=== PATIENT | female | born 1960 | race Caucasian/White ===

== ENCOUNTER → 2018-01-02 00:19 | Outpatient (CLI) | payer BC, SELFPAY ==
--- NOTE | 2018-01-02 07:11 | DI.REPORT_ITS ---
SYMPTOM/DIAGNOSIS: SCREENING, Z12.31 MAMMOGRAMS: Mammograms were interpreted according to the usual protocol including computer analysis with CAD system, tomosynthesis and C view imaging. Comparison is made with prior examinations. Breast density, category A. No masses or microcalcifications are seen. There is nothing to suggest malignancy. IMPRESSION: Negative mammogram. Routine screening is recommended. Category 1A. MQSA ASSESSMENT OF FINDINGS: Negative. Category 1. Patient will receive a letter notifying them of these results. BI-RAD category A. The breasts are almost entirely fatty.
== END ==
PROVIDERS: PCP Nurse Practitioner Family; Visit Provider Nurse Practitioner Family
DX: Z12.31 Encounter for screening mammogram for malignant neoplasm of breast (principal)
CPT/HCPCS: 77063; 77067

== ENCOUNTER → 2018-01-02 01:28 | Outpatient (CLI) | payer BC, SELFPAY ==
[2018-01-02 09:16] LABS: ALT 43 U/L (12-78); AST 24 U/L (15-37); Albumin 3.8 g/dL (3.4-5.0); Alkaline Phosphatase 76 U/L (46-116); Anion Gap 12.8 mmol/L (3-11); BUN 10 mg/dL (7-18); Bilirubin, Total 0.7 mg/dL (0.2-1.0); CO2 27.2 mmol/L (21.0-32.0); Calcium 9.1 mg/dL (8.5-10.1); Chloride 102 mmol/L (98-107); Glucose 201 mg/dL (70-100); Magnesium 1.5 mg/dL (1.8-2.4); Potassium 4.2 mmol/L (3.5-5.1); Sodium 142 mmol/L (136-145); TSH (W/Ref FT4) 0.92 uIU/mL (0.358-3.74)
[2018-01-02 09:22] LABS: Hemoglobin A1C 7.4 % (4.5-6.2)
[2018-01-02 09:58] LABS: Cholesterol 156 mg/dL (50-200); HDL Cholesterol 45 mg/dL (40-60); LDL CHOLESTEROL 91 mg/dL (<100); Triglyceride 147 mg/dL (30-150); Vitamin B12 307 pg/mL (193-986)
== END ==
PROVIDERS: PCP Nurse Practitioner Family; Visit Provider Nurse Practitioner Family
DX: E11.65 Type 2 diabetes mellitus with hyperglycemia (principal); E78.5 Hyperlipidemia, unspecified; I10 Essential (primary) hypertension
CPT/HCPCS: 36415; 80053; 80061; 83721; 82607; 83036; 83735; 84443

== ENCOUNTER 2018-04-15 14:18 | Outpatient (CLI) | payer BC, SELFPAY ==
[2018-04-14 11:23] LABS: Magnesium 1.7 mg/dL (1.8-2.4)
[2018-04-14 14:10] LABS: Hemoglobin A1C 6.8 % (4.5-6.2)
== END 2018-04-15 14:38 ==
PROVIDERS: PCP Nurse Practitioner Family; Visit Provider Nurse Practitioner Family
DX: E83.42 Hypomagnesemia (principal); E11.9 Type 2 diabetes mellitus without complications
CPT/HCPCS: 36415; 83036; 83735

== ENCOUNTER 2018-12-08 02:42 | Outpatient (CLI) | payer BC, SELFPAY ==
[2018-12-08 10:58] LABS: Hemoglobin A1C 8.1 % (4.5-6.2)
[2018-12-08 11:04] LABS: Anion Gap 12.8 mmol/L (3-11); BUN 11 mg/dL (7-18); CO2 24.2 mmol/L (21.0-32.0); Calcium 8.7 mg/dL (8.5-10.1); Calculated LDL 94 mg/dL; Chloride 104 mmol/L (98-107); Cholesterol 159 mg/dL (50-200); Glucose 200 mg/dL (70-100); HDL Cholesterol 41 mg/dL (40-60); Magnesium 1.4 mg/dL (1.8-2.4); Potassium 4.3 mmol/L (3.5-5.1); Sodium 141 mmol/L (136-145); Triglyceride 120 mg/dL (30-150)
== END 2018-12-08 03:02 ==
PROVIDERS: PCP Nurse Practitioner Family; Visit Provider Nurse Practitioner Family
DX: E11.9 Type 2 diabetes mellitus without complications (principal); E78.5 Hyperlipidemia, unspecified; E83.42 Hypomagnesemia
CPT/HCPCS: 36415; 80048; 80061; 83721; 83036; 83735

== ENCOUNTER 2019-01-05 01:38 | Outpatient (CLI) | payer BC, SELFPAY ==
--- NOTE | 2019-01-05 08:45 | DI.MRI_ITS ---
SYMPTOM/DIAGNOSIS: RT UPPER ARM PAIN M79.621 RIGHT SHOULDER MRI: 01/05 MRI examination of the shoulder was performed according to the usual protocol. There is small shoulder joint effusion and thee is fluid in the subacromial bursa. There is significant motion artifact on multiple pulse sequences and evaluation of the glenoid labrum is limited. There are hypertrophic changes of the acromioclavicular joint. No other significant bony abnormality seen. There is thickening and abnormal signal of the supraspinatus and infraspinatus tendons and there appear to be partial and full thickness tears, nonretracted, of both supraspinatus and infraspinatus tendons. Mildly abnormal signal noted in distal subscapularis tendon without evidence of a discrete tear. Biceps tendon and anchor show abnormal signal but do not appear to have a discrete tear. Biceps is minimally and medially displaced from the bicepital groove superiorly. There is abnormal signal in the rotator interval region without a discrete tear. There is increased fluid in the biceps tendon sheath which is a nonspecific finding. CONCLUSION: Limited study. Non retracted partial and full thickness infraspinatus and supraspinatus tendon tears Findings consistent with biceps tendinosis with no gross tear identified. Poor visualization of the biceps tendon, a tear is not entirely excluded.
== END 2019-01-05 01:58 ==
PROVIDERS: PCP Nurse Practitioner Family; Visit Provider Nurse Practitioner Family
DX: M75.21 Bicipital tendinitis, right shoulder (principal)
CPT/HCPCS: 73221

== ENCOUNTER 2019-01-18 01:12 | Outpatient (CLI) | payer BC, SELFPAY ==
--- NOTE | 2019-01-18 16:21 | DI.MAMMO_ITS ---
SYMPTOM/DIAGNOSIS: SCREENING Z12.31 BILATERAL SCREENING MAMMOGRAM: Mammograms were interpreted according to the usual protocol including computer analysis with CAD system, tomosynthesis and C view imaging. Comparison is made with exams from 2013 through 2018. The breasts are composed of fatty density tissue, breast density category A. No suspicious masses or suspicious microcalcifications are seen. There has been no significant change. IMPRESSION: Category 1, negative mammogram. Yearly screening mammography is recommended. Breast density category A. SA ASSESSMENT OF FINDINGS: Negative. Category 1. Patient will receive a letter notifying them of these results. BI-RAD category A. The breasts are almost entirely fatty.
== END 2019-01-18 01:32 ==
PROVIDERS: PCP Nurse Practitioner Family; Visit Provider Nurse Practitioner Family
DX: Z12.31 Encounter for screening mammogram for malignant neoplasm of breast (principal)
CPT/HCPCS: 77063; 77067

== ENCOUNTER 2019-04-21 10:20 | Outpatient (CLI) | payer BC, SELFPAY ==
[2019-04-21 13:05] LABS: ALT 36 U/L (14-59); AST 22 U/L (15-37); Albumin 3.8 g/dL (3.4-5.0); Alkaline Phosphatase 81 U/L (46-116); Anion Gap 12.2 mmol/L (3-11); BUN 14 mg/dL (7-18); Bilirubin, Total 0.6 mg/dL (0.2-1.0); CO2 26.8 mmol/L (21.0-32.0); CREATININE 0.99 mg/dL (0.55-1.02); Calcium 9.8 mg/dL (8.5-10.1); Chloride 101 mmol/L (98-107); Estimated GFR 57.61 (mL/min/1.73m2); Glucose 153 mg/dL (74-106); Magnesium 1.9 mg/dL (1.8-2.4); Potassium 4.8 mmol/L (3.5-5.1); Sodium 140 mmol/L (136-145); Total Protein 7.2 g/dL (6.4-8.2)
== END 2019-04-21 10:40 ==
PROVIDERS: PCP Nurse Practitioner Family; Visit Provider Nurse Practitioner Family
DX: E11.9 Type 2 diabetes mellitus without complications (principal)
CPT/HCPCS: 36415; 80053; 83735

== ENCOUNTER 2020-01-03 12:43 | Outpatient (REF) | payer BC, SELFPAY ==
[2020-01-03 14:15] LABS: Anion Gap 10.7 mmol/L (3-11); BUN 17 mg/dL (7-18); CO2 25.3 mmol/L (21.0-32.0); CREATININE 0.83 mg/dL (0.55-1.02); Calcium 9.3 mg/dL (8.5-10.1); Calculated LDL 115 mg/dL (<100); Chloride 104 mmol/L (98-107); Cholesterol 186 mg/dL (<200); Glucose 165 mg/dL (74-106); HDL Cholesterol 43 mg/dL (40-60); Potassium 4.5 mmol/L (3.5-5.1); Sodium 140 mmol/L (136-145); Triglyceride 143 mg/dL (<150)
[2020-01-03 14:20] LABS: Hemoglobin A1C 9.2 % (3.8-5.6)
[2020-01-05 10:00] LABS: Magnesium 1.8 mg/dL (1.8-2.4)
== END 2020-01-03 13:03 ==
LOC: LBN 12:43
PROVIDERS: PCP Nurse Practitioner Family; Visit Provider Nurse Practitioner Family
DX: E11.9 Type 2 diabetes mellitus without complications (principal)
CPT/HCPCS: 80048; 80061; 83036; 83735

== ENCOUNTER 2020-01-24 02:14 | Outpatient (CLI) | payer BC, SELFPAY ==
--- NOTE | 2020-01-24 08:15 | DI.MAMMO_ITS ---
EXAM: MG MAMMO SCREENING CLINICAL HISTORY: screening, Z12.39 TECHNIQUE: Bilateral full field digital CC and MLO mammographic images were obtained with 3D tomosyn thesis and utilizing computer aided detection (CAD). COMPARISON: Available for comparison. FINDINGS: Masses/Architectural Distortion: None seen. Microcalcifications: No suspicious pleomorphic-type are seen. Skin Thickening/Nipple Retraction: None. IMPRESSION: 1. No significant interval change with no specific features of malignancy noted. 2. Unless there is more urgent need, screening mammography is recommended, as per [place] [employer] guidelines. BI-RADS Category 1 - Negative Breast Density - Category A - Almost entirely fatty A negative radiographic report should not delay biopsy if a dominant or clinically suspicious mass is present. Up to ten percent of cancers are not identified on mammography. A negative report may reinforce clinical impression. Adenosis and dense breasts may obscure an underlying neoplasm. False positive reports average 6 to 10%. Patient will receive a letter notifying them of these results.
== END 2020-01-24 02:34 ==
PROVIDERS: PCP Nurse Practitioner Family; Visit Provider Nurse Practitioner Family
DX: Z12.31 Encounter for screening mammogram for malignant neoplasm of breast (principal)
CPT/HCPCS: 77063; 77067

== ENCOUNTER 2020-02-03 21:51 | Outpatient (REF) | payer BC, SELFPAY ==
[2020-02-03 20:47] LABS: Anion Gap 13.6 mmol/L (3-11); BUN 54 mg/dL (7-18); CO2 25.4 mmol/L (21.0-32.0); CREATININE 1.56 mg/dL (0.55-1.02); Calcium 9.9 mg/dL (8.5-10.1); Chloride 94 mmol/L (98-107); Estimated GFR 33.97 (mL/min/1.73m2); Glucose 146 mg/dL (74-106); Potassium 3.4 mmol/L (3.5-5.1); Sodium 133 mmol/L (136-145)
== END 2020-02-03 22:11 ==
LOC: LBN 21:51
PROVIDERS: PCP Nurse Practitioner Family; Visit Provider Nurse Practitioner Family
DX: E11.9 Type 2 diabetes mellitus without complications (principal)
CPT/HCPCS: 80048

== ENCOUNTER 2020-02-11 01:58 | Outpatient (CLI) | payer BC, SELFPAY ==
[2020-02-11 17:23] LABS: Anion Gap 9.5 mmol/L (3-11); BUN 41 mg/dL (7-18); CO2 26.5 mmol/L (21.0-32.0); CREATININE 1.31 mg/dL (0.55-1.02); Calcium 9.6 mg/dL (8.5-10.1); Chloride 98 mmol/L (98-107); Estimated GFR 41.56 (mL/min/1.73m2); Glucose 212 mg/dL (74-106); Potassium 3.7 mmol/L (3.5-5.1); Sodium 134 mmol/L (136-145)
== END 2020-02-11 02:18 ==
PROVIDERS: PCP Nurse Practitioner Family; Visit Provider Nurse Practitioner Family
DX: N17.9 Acute kidney failure, unspecified (principal)
CPT/HCPCS: 36415; 80048

== ENCOUNTER 2020-03-07 01:52 | Outpatient (CLI) | payer BC, SELFPAY ==
--- NOTE | 2020-03-07 15:30 | NS.NUTBLAN_ITS ---
Assessment: Desiree present for nutritional counseling r/t DM w/ mild elevated BG and concerns about her eating habits/food choices. She uses the freestyle jn CGM and we reviewed some recent numbers which were revealed post prandial BG of 226(H). She recently had her Lantus increased to 14units and after a follow up call from this RD today (03/16) she reports that her BG levels are trending toward desired range to promote optimum TIR. She is on Jardiance and glipizide also. She states that she follows her DM med regimen per MD orders. Previously on victoza which gave her undesirable GI side effects. Noted: hx diverticulitis. She is a smoker and has some DM related retinopathy per documentation. She reported a breakfast of 2 keto pancakes,sugar free syrup, and 2 slices trejo. She has been eating very low amounts of CHO's according to her reported diet hx. Intervention: Reviewed the concept of elevated BG resulting from glycogen conversion by the liver to compensate for lack of CHO intake. Explained the counterintuitive nature of this concept to help Desiree understand that people with DM need CHO in the diet with monitoring and that total elimination can result in both elevated BG and Hypoglycemia. We discussed examples of complex CHO's vs simple CHO. Recommended <60g CHO/ meal period. Explained that her elevated FBG could be mitigated by a small healthy snack at night. She agreed to try that. Provided CHO and PRO paring examples to facilitate desired TIR. Encouraged follow up appointment to analyze data from CGM and provide TIR education. Plan: Spoke with Desiree today to encourage follow up with this RD prior to and other approaching holidays. At this upcoming meeting we will set calorie/Fats/Pro percentage goals, calculate nutritional needs and perform data analysis using CGM. Time Spent Face top Face: 4 units/ 1 hour
== END 2020-03-07 02:12 ==
PROVIDERS: PCP Nurse Practitioner Family; Visit Provider Dietitian, Registered
DX: E11.65 Type 2 diabetes mellitus with hyperglycemia (principal); Z71.3 Dietary counseling and surveillance
CPT/HCPCS: 97802

== ENCOUNTER 2020-03-09 17:13 | Outpatient (REF) | payer BC, SELFPAY ==
[2020-03-09 21:34] LABS: Anion Gap 9.7 mmol/L (3-11); BUN 37 mg/dL (7-18); CO2 30.3 mmol/L (21.0-32.0); CREATININE 1.26 mg/dL (0.55-1.02); Calcium 10.1 mg/dL (8.5-10.1); Chloride 98 mmol/L (98-107); Estimated GFR 43.46 (mL/min/1.73m2); Glucose 179 mg/dL (74-106); Potassium 3.6 mmol/L (3.5-5.1); Sodium 138 mmol/L (136-145)
== END 2020-03-09 17:33 ==
LOC: LBN 17:13
PROVIDERS: PCP Nurse Practitioner Family; Visit Provider Nurse Practitioner Family
DX: E11.9 Type 2 diabetes mellitus without complications (principal)
CPT/HCPCS: 80048

== ENCOUNTER 2020-04-21 04:53 | Outpatient (CLI) | payer BC, SELFPAY ==
[2020-04-21 08:14] LABS: Hemoglobin A1C 6.8 % (<5.7)
[2020-04-21 08:39] LABS: Anion Gap 8.5 mmol/L (3-11); BUN 27 mg/dL (7-18); CO2 28.5 mmol/L (21.0-32.0); CREATININE 1.33 mg/dL (0.55-1.02); Calcium 9.4 mg/dL (8.5-10.1); Chloride 98 mmol/L (98-107); Estimated GFR 40.84 (mL/min/1.73m2); Glucose 211 mg/dL (74-106); Potassium 3.5 mmol/L (3.5-5.1); Sodium 135 mmol/L (136-145)
== END 2020-04-21 05:13 ==
PROVIDERS: PCP Nurse Practitioner Family; Visit Provider Nurse Practitioner Family
DX: E11.9 Type 2 diabetes mellitus without complications (principal)
CPT/HCPCS: 36415; 80048; 83036

== ENCOUNTER 2020-05-29 03:37 | Outpatient (CLI) | payer BC, SELFPAY ==
[2020-05-29 12:43] LABS: Anion Gap 7.6 mmol/L (3-11); BUN 23 mg/dL (7-18); CO2 29.4 mmol/L (21.0-32.0); CREATININE 1.24 mg/dL (0.55-1.02); Calcium 9.4 mg/dL (8.5-10.1); Chloride 99 mmol/L (98-107); Estimated GFR 44.27 (mL/min/1.73m2); Glucose 194 mg/dL (74-106); Potassium 3.8 mmol/L (3.5-5.1); Sodium 136 mmol/L (136-145)
== END 2020-05-29 03:57 ==
PROVIDERS: PCP Nurse Practitioner Family; Visit Provider Nurse Practitioner Family
DX: E11.9 Type 2 diabetes mellitus without complications (principal)
CPT/HCPCS: 36415; 80048

== ENCOUNTER 2020-07-18 02:27 | Outpatient (CLI) | payer BC, SELFPAY ==
[2020-07-18 08:26] LABS: Hemoglobin A1C 7.1 % (<5.7)
[2020-07-18 08:41] LABS: Anion Gap 10.7 mmol/L (3-11); BUN 27 mg/dL (7-18); CO2 29.3 mmol/L (21.0-32.0); CREATININE 1.4 mg/dL (0.55-1.02); Calcium 9.4 mg/dL (8.5-10.1); Calculated LDL 108 mg/dL (<100); Chloride 97 mmol/L (98-107); Cholesterol 183 mg/dL (<200); Estimated GFR 38.49 (mL/min/1.73m2); Glucose 202 mg/dL (74-106); HDL Cholesterol 44 mg/dL (40-60); Potassium 3.5 mmol/L (3.5-5.1); Sodium 137 mmol/L (136-145); Triglyceride 156 mg/dL (<150)
== END 2020-07-18 02:28 | disposition home or self-care (01) ==
LOC: LBO 02:27
PROVIDERS: PCP Nurse Practitioner Family; Visit Provider Nurse Practitioner Family
DX: E11.9 Type 2 diabetes mellitus without complications (principal); E78.5 Hyperlipidemia, unspecified
CPT/HCPCS: 36415; 80048; 80061; 83036

== ENCOUNTER 2020-08-09 00:43 | Outpatient (CLI) | payer BC, SELFPAY ==
--- NOTE | 2020-08-09 13:48 | DI.US_ITS ---
APPROVED REPORT EXAM: Comprehensive 2D, Doppler, and color-flow Echocardiogram Patient Location: Out-Patient Roll Over Loader: Susannah Tyler RDCS (AE) Indications: Questioning mitral click, Abnormal heart sounds Other Information Study Quality: Good Conclusion Normal left ventricular wall thickness and chamber size. Estimated ejection fraction is 60 to 65%. Th ere are no segmental wall motion abnormalities Normal right ventricular size and systolic function Both atria are normal in size Mildly sclerotic trileaflet aortic valve without stenosis or regurgitation Mild mitral annular calcification. Trace mitral regurgitation Structurally normal tricuspid and pulmonic valves. Trace tricuspid and pulmonic regurgitation. Normal estimated right ventricular systolic pressure Mildly dilated ascending aorta measuring 3.49 cm Wall motion Left Ventricle The left ventricle is normal size. The left ventricular systolic function is normal. The left ventric ular ejection fraction is within the normal range. There is normal left ventricular wall thickness. T here is normal LV segmental wall motion. There is no ventricular septal defect visualized. LVEF is 60 -65%. Right Ventricle The right ventricle is normal size. The right ventricular systolic function is normal. The RVSP is 10 .8mmHg. Atria The left atrium size is normal. The right atrium size is normal. The interatrial septum is intact wit h no evidence for an atrial septal defect. Aortic Valve The Aortic valve is mildly sclerotic. Aortic valve is trileaflet. There is no aortic valvular stenosi s. No aortic regurgitation is present. Mitral Valve Mild mitral annular calcification. No evidence of mitral valve stenosis. Trace mitral regurgitation. Tricuspid Valve The tricuspid valve is normal in structure. There is no tricuspid valve stenosis. Trace tricuspid reg urgitation. Pulmonic Valve The pulmonary valve is normal in structure. There is no pulmonic valvular stenosis. Trace pulmonic re gurgitation. Great Vessels The aortic root is normal in size. The ascending aorta is mildly dilated.3.49 cm Aortic arch is adry l in caliber. IVC is normal in size and collapses >50% with inspiration. Pericardium There is no pericardial effusion. 2D Dimensions IVSD d PLAX 1.05 cm F: 0.6-1.0 LV Vol A2C d MOD 73.4 mL LVPW d PLAX 1.01 cm F: 0.6 - 1.0 LV Vol A4C d MOD 62.0 mL LVID d PLAX 3.99 cm F: 3.8 - 5.2 LA vol/ BSA A2C s A-L 22.8 mL/m2 LVDs 2.80 cm F: 2.2 - 3.5 LA vol/ BSA A4C s A-L 23.2 mL/m2 Ao Root d 2.87 cm F: 2.7 - 3.3 LA Vol/ BSA Biplane s A-L 24.0 mL/m2 RA Area A4C 12.71 cm2 LA Area A4C s MOD 16.41 cm2 RA Vol/ BSA A4C s A-L 17.2 mL/m2 LA Area A2C s MOD 15.64 cm2 Ao Asc Diam d 3.49 cm F: 2.3 - 3.1 LV EF A4C MOD 58.5 % LV EF Teichholz 57.0 % LV EF A2C MOD 57.6 % LVEF (Alfaro's) 54.38 % F: 54 - 74 LV EF Biplane MOD 54.4 % LV Volume 52.69 mL F: 46 - 106 SV 36.89 mL LV Volume Index 29.27 mL/m2 F: 29 - 61 SV Index 20.42 mL/m2 LV Vol Biplane MOD 67.8 mL FS 29.40 % M-Mode TAPSE 1.62 cm (M/F) >1.7 LV Diastology MV E' medial 0.071 (>0.07 m/s) E/A Ratio 0.9 LV E/e MED 9.10 (<14) MV E Vmax 0.65 (0.4-1.3 m/s) MV E' lateral 0.086 (>0.1 m/s) MV A Vmax 0.75 (0.4-1.3 m/s) LV E/e LAT 7.55 (<14) MV E/A Ratio 0.85 MV E/E' medial 9.12 MV E/E' lateral 7.56 Aortic Valve LVOT Area 3.02 cm2 AoV Area Vmax 2.00 cm2 LVOT Vmax 1.07 m/s AoV Area/ BSA (Vmax) 1.11 cm2/m2 LVOT Mean Angel. 0.67 m/s VERA Mean Angel. 1.90 cm2 LVOT Peak Grad 4.6 mmHg VERA Mean Angel. Index 1.05 cm2/m2 LVOT Mean Grad 2.1 mmHg LVOT VTI 0.159 m LVOT Diam s 1.95 cm AoV Vmax 1.61 m/s Velocity Ratio 0.66 AoV Mean Angel. 1.07 m/s AoV Peak Grad 10.4 mmHg LVOT SV 47.98 mL AoV Mean Grad 5.3 mmHg AoV VTI 0.293 m AoV Area VTI 1.64 cm2 AoV Area/ BSA (VTI) 0.91 cm/m2 Mitral Valve MV DT 211 (160-240 msec) MV PHT 61 msec MV Area PHT 3.59 cm2 MV VTI 0.182 m MV Area VTI 2.64 (4.0-6.0 cm2) Pulmonary Valve PV Vmax 1.89 (0.5-1.5 m/s) RVOT Peak Gr. 2.61 mmHg PV Peak Grad 14.3 mmHg RVOT Mean Gr. 1.30 mmHg PV Mean Grad 7.2 mmHg RVOT VTI 0.150 m PV VTI 0.323 m RVOT Vmax 0.81 m/s Tricuspid Valve TR Peak Grad 7.7 mmHg TR Vmax 1.39 m/s RA Pressure 3.00 mmHg RVSP (TR) 10.8 mmHg
== END 2020-08-09 01:03 ==
PROVIDERS: PCP Nurse Practitioner Family; Visit Provider Nurse Practitioner Family
DX: R01.2 Other cardiac sounds (principal); I77.810 Thoracic aortic ectasia
CPT/HCPCS: 93306

== ENCOUNTER 2020-08-09 02:28 | Outpatient (CLI) | payer BC, SELFPAY ==
[2020-08-09 16:17] LABS: Anion Gap 9.6 mmol/L (3-11); BUN 27 mg/dL (7-18); CO2 29.4 mmol/L (21.0-32.0); CREATININE 0.9 mg/dL (0.55-1.02); Calcium 9.9 mg/dL (8.5-10.1); Chloride 100 mmol/L (98-107); Glucose 117 mg/dL (74-106); Potassium 3.5 mmol/L (3.5-5.1); Sodium 139 mmol/L (136-145)
== END 2020-08-09 02:29 | disposition home or self-care (01) ==
LOC: LBO 02:28
PROVIDERS: PCP Nurse Practitioner Family; Visit Provider Nurse Practitioner Family
DX: N17.9 Acute kidney failure, unspecified (principal)
CPT/HCPCS: 36415; 80048

== ENCOUNTER 2021-01-12 03:51 | Outpatient (CLI) | payer BC, SELFPAY ==
--- NOTE | 2021-01-12 07:30 | DI.CTLCSR_ITS ---
Exam(s) CT CHEST LUNG CANCER SCREEN EXAM: CT CHEST LUNG CANCER SCREEN CLINICAL HISTORY: Screening for lung cancer,current smoker,f17.210 TECHNIQUE: Imaging Protocol: Axial computed tomography images with coronal and sagittal reformatted images were created and reviewed COMPARISON: No exams were available for comparison FINDINGS: Tracheobronchial tree: Patent where visualized. Pulmonary parenchyma: No consolidation or dominant measurable mass. No architectural distortion. Lung Nodules: There is a 4 mm nodule in the right upper lobe. There are two 3 mm nodules in the righ t lower lobe. There is a 3 mm nodule in the superior segment of the left lower lobe. Mediastinum and Kina: No dominant adenopathy or fluid collection. Pleura: No effusion or pneumothorax. Heart: The heart is not dilated. Moderate coronary artery calcification. No pericardial effusion. Aorta: Thoracic aorta non-dilated.Mild atherosclerosis. Upper abdomen: Unremarkable. Soft Tissues: Unremarkable. Bones: Within normal limits. IMPRESSION: Pulmonary nodules. Lung RADS Cat 2 - Benign Appearance / Behavior: Nodules with a very low likelihood of becoming a clin ically active cancer due to size or lack of growth Lung-RADS 1.0 CATEGORIES: Category 0 - Prior chest CT exam(s) being located for comparison. Category 1 - Annual screening in 12 months. No nodules or definitely benign nodules. Category 2 - Annual screening in 12 months. Benign appearance. Nodules with low likelihood of becomin g active cancer. Category 3 - 6-month follow-up. Probably benign. Short-term follow-up suggested. Nodules with low lik elihood of becoming active cancer. Category 4A - 3-month follow-up and CT/PET if >8 mm in size. Suspicious finding. Findings which requi re additional testing. Category 4B - Findings which require additional testing and tissue sampling. Suspicious finding. Modifier S- Potentially clinically significant finding. (Non lung cancer) RADIATION DOSE DELIVERED: 67mGy.cm Total DLP 1.84mGy CTDIvol 67mGy.cm Total DLP 1.84mGy CTDIvol DATA REPOSITORY: All CT scans at this facility are submitted to the National Radiology Data Registry (NRDR) Dose Index Registry (DIR) with the [employer] ([employer]). RADIATION OPTIMIZATION: All CT scans at this facility use at least one of these dose optimization te chniques: automated exposure control; mA and/or kV adjustment per patient size (includes targeted exa ms where dose is matched to clinical indication); or iterative reconstruction.
--- NOTE | 2021-01-12 07:30 | DI.CT_ITS ---
Exam(s) CT ABDOMEN PELVIS W EXAM: CT ABDOMEN PELVIS W CLINICAL HISTORY: Suspected umbilical ,abd mass,r19.00,k43.9 TECHNIQUE: Imaging Protocol: Axial computed tomography images with coronal and sagittal reformatted images were created and reviewed CONTRAST MATERIAL: Intravenous: Omnipaque 350 Contrast volume:100 mL Oral: Yes COMPARISON: No exams were available for comparison FINDINGS: ABDOMEN: Lung Bases: Normal where visualized. Liver: Normal density. No measurable mass. Portal, Superior Mesenteric, and Splenic Veins: Unremarkable. Gallbladder and Biliary Tract: Status post cholecystectomy. No biliary ductal dilatation. Pancreas: Normal density, no abnormal calcifications or inflammatory process. Spleen: Normal. Adrenals: No masses seen. Kidneys: Normal size, contour and axis. No radiodense stones or obstructive uropathy. There is a 1.1 cm round hypodense cortical lesion in the superior pole of the right kidney. It does not meet the cr iteria for simple cyst. A renal ultrasound may be considered for further evaluation. Abdominal Aorta: Abdominal portion non-dilated. Mild atherosclerosis. Bowel: No evidence of bowel obstruction. There is a midline anterior abdominal wall hernia at the le alison of the umbilicus. It contains an unremarkable loop of transverse colon. No evidence of strangul ation or incarceration. No evidence of appendicitis. There is diverticulosis seen in the descending and sigmoid colon, but no evidence of acute diverticulitis. Peritoneal Cavity: No ascites, collection or mesenteric inflammatory response. No free air. Lymph Nodes: Within normal limits. Bones: Within normal limits for the patient's age. Soft Tissues: There has been prior anterior abdominal wall surgery. PELVIS: Bladder: Symmetric distention, no gross wall thickening. Reproductive Organs: Status post hysterectomy. Lymph Nodes: Within normal limits. Bones: Within normal limits for the patient's age. IMPRESSION: 1. There is a midline moderate size anterior abdominal wall hernia at the level of the umbilicus. It contains a loop of transverse colon. There is no evidence of strangulation or incarceration. 2. 1.1 cm round hypodense cortical lesion in the superior pole of the right kidney. It does not meet the criteria for simple cyst. A renal ultrasound should be considered for further evaluation. RADIATION DOSE DELIVERED: 1,088.91mGy.cm Total DLP DATA REPOSITORY: All CT scans at this facility are submitted to the National Radiology Data Registry (NRDR) Dose Index Registry (DIR) with the [employer] ([employer]). RADIATION OPTIMIZATION: All CT scans at this facility use at least one of these dose optimization te chniques: automated exposure control; mA and/or kV adjustment per patient size (includes targeted exa ms where dose is matched to clinical indication); or iterative reconstruction.
[2021-01-12] MEDS: Omnipaque 350 MG/ML 50 ML BTL PO (09:04)
[2021-01-12] MEDS: Breeza Beverage 473 ML BTL PO (09:05)
[2021-01-12 09:10] LABS: CREATININE 1.1 mg/dL (0.55-1.02); Estimated GFR 50.67 (mL/min/1.73m2)
[2021-01-12] MEDS: Omnipaque 350 MG/ML 100 ML BTL IV (10:22)
[2021-01-12] MEDS: Normal Saline Flush 10 ML SYR IVP (10:24)
== END 2021-01-12 04:11 ==
PROVIDERS: PCP Nurse Practitioner Family; Visit Provider Nurse Practitioner Family
DX: Z12.2 Encounter for screening for malignant neoplasm of respiratory organs (principal); R91.8 Other nonspecific abnormal finding of lung field; N28.89 Other specified disorders of kidney and ureter; K42.9 Umbilical hernia without obstruction or gangrene; K43.9 Ventral hernia without obstruction or gangrene; F17.210 Nicotine dependence, cigarettes, uncomplicated
CPT/HCPCS: 71271; 74177; 82565; J3490; Q9967

== ENCOUNTER 2021-01-24 01:18 | Outpatient (CLI) | payer BC, SELFPAY ==
--- NOTE | 2021-01-24 08:45 | DI.MAMMO_ITS ---
Exam(s) MAMMO SCREENING EXAM: MAMMO SCREENING CLINICAL HISTORY: screening,z12.39 TECHNIQUE: Mammograms were interpreted according to the usual protocol including computer analysis w [employer] CAD system, tomosynthesis and C-view imaging. COMPARISON: 2010 through 2019 FINDINGS: The breasts are composed of scattered fibroglandular densities, Breast Density category B. No suspicious masses or suspicious microcalcifications are seen. No skin thickening or abnormal axillary lymph nodes are seen. There has been no significant change from prior exams. IMPRESSION: BI-RADS Category 1, Negative mammogram Yearly screening mammography is recommended. Breast Density - Category B, scattered fibroglandular densities. A negative radiographic report should not delay biopsy if a dominant or clinically suspicious mass is present. Up to ten percent of cancers are not identified on mammography. A negative report may reinforce clinical impression. Adenosis and dense breasts may obscure an underlying neoplasm. False positive reports average 6 to 10%. Patient will receive a letter notifying them of these results.
== END 2021-01-24 01:38 ==
PROVIDERS: PCP Nurse Practitioner Family; Visit Provider Nurse Practitioner Family
DX: Z12.31 Encounter for screening mammogram for malignant neoplasm of breast (principal)
CPT/HCPCS: 77063; 77067

== ENCOUNTER 2021-07-06 02:18 | Outpatient (CLI) | payer BC, SELFPAY ==
[2021-07-06 15:37] LABS: Hemoglobin A1C 8.2 % (<5.7)
[2021-07-06 16:09] LABS: Anion Gap 6.3 mmol/L (3-11); BUN 19 mg/dL (7-18); CO2 29.7 mmol/L (21.0-32.0); Calcium 9.5 mg/dL (8.5-10.1); Chloride 102 mmol/L (98-107); Estimated GFR 56.56 (mL/min/1.73m2); Glucose 207 mg/dL (74-106); Potassium 3.6 mmol/L (3.5-5.1); Sodium 138 mmol/L (136-145)
== END 2021-07-06 02:19 | disposition home or self-care (01) ==
LOC: LBO 02:18
PROVIDERS: PCP Nurse Practitioner Family; Visit Provider Nurse Practitioner Family
DX: E11.9 Type 2 diabetes mellitus without complications (principal)
CPT/HCPCS: 36415; 80048; 83036

== ENCOUNTER → 2022-01-25 00:26 | Outpatient (CLI) | payer OTHER, SELFPAY ==
--- OUTSIDE RECORDS SUMMARY | 2022-01-25 00:31 | XMS_ITS | Encounter Summary ---
:1960 Author Organization [facility] [place] [address] Care Team Providers Name Role Phone Unknown Primary Care Provider Unavailable Reason for Visit Reason Comments Established annual Encounter Details Date Type Department Care Team Description 07/30/2016 Office Visit Gynecology Oncology Guerrero, Christie Ova car cancer, unspecified laterality; at [facility] M, POLICE CHIEF Encounter for gynecological examination without abnormal finding [facility] [address], [place], [place] [id number] [phone] Social History Tobacco Use Types Packs/Day Years Used Date Current Every Day Smoker Cigarettes 0.5 20 Smokeless Tobacco: Never Used Comments: had quit for 2 years in 2009 Alcohol Use Standard Drinks/Week Comments No 0 (1 standard drink = 0.6 oz pure alcoho l) Sex Assigned at Date Recorded Not on file documented as of this encounter Last Filed Vital Signs Vital Sign Reading Time Taken Comments Blood Pressure 149/78 07/30/2016 1:33 PM EST Pulse 117 07/30/2016 1:33 PM EST Temperature 37.2 ??C (99 ??F) 07/30/2016 1:33 PM EST Respiratory Rate 20 07/30/2016 1:33 PM EST Oxygen Saturation 98% 07/30/2016 1:33 PM EST Inhaled Oxygen Concentration - - Weight 87 kg (191 lb 12.8 oz) 07/30/2016 1:33 PM EST Height 162.4 cm (5' 3.94) 07/30/2016 1:33 PM EST Body Mass Index 32.99 07/30/2016 1:33 PM EST documented in this encounter Progress Notes Christie Masters, POLICE CHIEF - 07/30/2016 2:00 PM EST Division [place] [address] Reason For Visit: Annual COREMAKER MACHINE exam/ Post Treatment Surveillance Exam History of Present Illness: Desiree Ching is a 55 y.o. 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 She has a hx of stage IIC, grade I ovarian cancer she is s/p exploratory laparotomy, total abdominal hysterectomy, bilateral salpingo-oophorectomy, appendectomy, omentectomy and staging biopsies on January 04, [address] Olea. She completed 3 cycles of carboplatin and paclitaxel chemotherapy per GOG 175 in February 2003. Her disease is followed by CA 125. Interim Health: Feeling good. No new medical issues, surgeries or hospitalizations. She has no COREMAKER MACHINE concerns/complaints today. ROS: No Pelvic/abdominal pain or bloating No Bowel/bladder concerns or changes. Energy level is fine No Vaginal bleeding or discharge Mild occasional lower extremity edema- no changes, better with elevation. Appetite is good Weight is stable. No SOB, cough or chest pain Sexual function: sexually active with occasional dryness and with decrease frequency and desire. Advanced directives: Desiree Ching does not have any advance directives on file. The purpose of advance directives were reviewed with her and she was provided with the state-specific booklet to complete these. I have asked that she bring a copy of her completed advance directives to her next visit sothat it may be scanned into our electronic medical record. Health Habits: Tobacco: 1/2 PPD. ETOH: none Exercise: Walking 5x week, 45 minutes in the nice weather. Health Maintenance: Mammogram: 09/2015, normal per patient. Colonoscopy: Fall 2013, repeat 10 years Social History: Lives with her (their 16 yo grandson from next door is living with them right now). They live next door to her daughter and her family. 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 Patient Active Problem List Diagnosis Code ??? Ovarian cancer C56.9 ??? Hypertension I10 ??? Obesity E66.9 ??? History of tobacco use Z87.891 ??? Diabetes mellitus type 2 in obese E11.9, E66.9 Past Surgical History: Procedure Laterality Date ??? CHOLECYSTECTOMY ??? DILATION AND CURETTAGE OF UTERUS ??? FOOT SURGERY ??? HYSTERECTOMY ??? SALPINGO-OOPHORECTOMY Allergies Allergen Reactions ??? No Known Allergies Current Outpatient Prescriptions on File Prior to Visit Medication Sig Dispense Refill ??? metFORMIN (GLUCOPHAGE) 500 mg tablet Take 500 mg by mouth 2 times daily (with meals). ??? lisinopril (ZESTRIL) 10 mg tablet ??? aspirin 81 mg EC tablet ??? lovastatin (MEVACOR) 20 mg tablet No current facility-administered medications on file prior to visit. Vital Signs: BP 149/78 (Patient Position: Sitting) Pulse 117 Temp 37.2 ??C (99 ??F) (Oral) Resp 20 Ht 162.4 cm (5' 3.94) Wt 87 kg (191 lb 12.8 oz) SpO2 98% BMI 32.99 kg/m2 PHYSICAL EXAM: Gen: Pleasant, NAD, Alert, appears well. HEENT: No clavicular adenopathy or thyromegaly Breast Exam: No dominant masses, no lymphadenopathy, No nipple discharge or puckering noted Lungs: clear to auscultation Cor: heart RRR without appreciable murmurs. Abdomen: soft, not distended, not tender, no masses palpable, no appreciable inguinal adenopathy Lower Extremities: without edema today Pelvic exam: atrophic external female genitalia; vulva, urethral meatus, perineum and perianal area without lesions. Speculum exam: intact vaginal cuff, no visible lesions. Bimanual exam: limited secondary to body habitus. No appreciable masses, nodularity or tenderness. Uterus and adnexae surgically a bsent Rectovaginal exam: good tone, no appreciable masses or tenderness. ASSESSMENT/PLAN: Desiree Ching is a 55 y.o. woman who is post treatment of stage IIC, grade I ovarian cancer . She has no evidence of recurrent disease. We reviewed signs and symptoms of recurrent disease. Will check CA 125 today and f/u with patient re: results. She will RTC in 1 year, sooner prn with questions/concerns. Approx. 5 minutes time was spent discussing patient's smoking. Recommended she quit, as smoking decreases her overall projected longevity and increases her risk of many cancers, as well as cardiovascular disease and lung disease. She states understanding of this concept. Patient has the tobacco cessation packet at home. Offered referral to [facility] tobacco window treatment installer, patient declines at this time, she will f/u with her PCP or [facility] tobacco quit program. Elevated BP: she will have her BP checked by the school nurse at her work and plan to f/u with her PCP if continues to be elevated. Christie Masters APRN documented in this encounter Plan of Treatment Not on filedocumented as of this encounter Results Cancer Antigen 125 (07/30/2016 3:15 PM EST) P athologist Signature CA 125 9.1 <=38.1 [facility] unit/mL [facility] Comment: CA 125 Reference Interval ??Postmenopausal: 6.2 to 31.5 U/mL. ??Premenopausal: 6.9 to 45.9 U/mL. ??Pre and Postmenopausal subjects combi francois: 6.4 to 38.1 U/mL. Specimen Anatomical Collection Method Collection Time Receive d Time (Source) Location / / Volume Laterality Blood specimen 07/30/2016 3:15 PM 017 3:27 (specimen) EST PM EST Resulting Agency Comment Spec In Lab Jose Hood MD CHEMISTRY ORDERABLES Performing Organization Address City/State/ZIP [place] [address] documented in this encounter Visit Diagnoses Diagnosis Ovarian cancer, unspecified laterality Encounter for gynecological examination without abnormal finding Routine gynecological examination documented in this encounter Care Teams Docket Specialist Relationship Specialty Start Date End Date Unknown PCP - General 09/13/14 01/01/18 None documented as of this encounter
--- OUTSIDE RECORDS SUMMARY | 2022-01-25 00:31 | XMS_ITS | Encounter Summary ---
:1960 Author Organization [facility] [place] [address] Care Team Providers Name Role Phone Unknown Primary Care Provider Unavailable Encounter Details Date Type Department Care Team Description 07/30/2016 Hospital Encounter Hematology and Ovarian cancer, Oncology [place] [facility] [place] [place] [address] Social History Tobacco Use Types Packs/Day Years Used Date Current Every Day Smoker Cigarettes 0.5 20 Smokeless Tobacco: Never Used Comments: had quit for 2 years in 2009 Alcohol Use Standard Drinks/Week Comments No 0 (1 standard drink = 0.6 oz pure alcoho l) Sex Assigned at Date Recorded Not on file documented as of this encounter Medications at Time of Discharge Medication Sig Dispensed Refills Start Date End Date glipiZIDE (Glucotrol) 10 Take 10 mg by mouth 0 mg Tablet 2 times daily (before meals). lisinopril (ZESTRIL) 10 Take 40 mg by mouth 0 mg tablet daily. lovastatin (MEVACOR) 40 Take 40 mg by mouth 0 mg Tablet nightly. metFORMIN (GLUCOPHAGE) Take 500 mg by mouth 0 10/30/2021 500 mg tablet 2 times daily (with meals). aspirin 81 mg EC tablet 0 04/11/2010 0 01/11/2019 documented as of this encounter Plan of Treatment Not on filedocumented as of this encounter Procedures Procedure Name Priority Date/Time Associated Diagnosis Comme nts CANCER ANTIGEN 125 Routine 07/30/2016 3:15 PM Ovarian cancer, Results for this EST unspecified procedure are i n laterality the results section. documented in this encounter Results Cancer Antigen 125 (07/30/2016 3:15 PM EST) P athologist Signature CA 125 9.1 <=38.1 [facility]/mL [facility] Comment: CA 125 Reference Interval [...] Organization Address City/State/[place] [address] documented in this encounter Visit Diagnoses Diagnosis Ovarian cancer, unspecified laterality documented in this encounter Care Teams Transfer Car Operator Relationship Specialty Start Date End Date Unknown PCP - General 09/13/14 01/01/18 None documented as of this encounter
--- OUTSIDE RECORDS SUMMARY | 2022-01-25 00:31 | XMS_ITS | Encounter Summary ---
:1960 Author Organization [facility] [place] [address] Care Team Providers Name Role Phone Courtney Malone APRN Primary Care Provider Reason for Visit Consultation (Routine) - Authorized Specialty Diagnoses / Procedures Referred By Contact Refer red To Contact Dermatology Diagnoses Psoriasis Courtney Malone APRN [facility] Dermatology [address] [address] [place], [place] [address] [address] [place] [address] Fax: Referral ID Status Reason Start Expiration Visits Visits Date Date Requested Authorized [id number] Authorized Consult, 08/20/2021 08/20/2022 6 6 Test & Treat PCP Updated and/or Approved Encounter Details Date Type Department Care Team Description 10/30/2021 Office Visit Dermatology at [facility] Cassandra, Blanca Cruz soriasis; Humberto DEVINE High risk medication use [address] [place] [address] [facility] [place], [place] [address] Social History Tobacco Use Types Packs/Day Years Used Date Current Every Day Smoker Cigarettes 0.5 20 Smokeless Tobacco: Never Used Comments: had quit for 2 years in 2009 Alcohol Use Standard Drinks/Week Comments No 0 (1 standard drink = 0.6 oz pure alcoho l) Sex Assigned at Date Recorded Not on file documented as of this encounter Progress Notes Bryce Trujillo MD - 10/30/2021 2:15 PM EDT Images from the original note were not included. DEPARTMENT OF DERMATOLOGY Medical Dermatology Clinic Provider: Bryce Trujillo MD Patient's preferred name Desiree Preferred contact method for results [x]Phone [x]myD-H []Letter Detailed phone message OK? Yes Are there any other people with whom we may discuss your care? 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 Patient is referred to the clinic at the request of Courtney Malone for psoriasis on the arms and legs and maybe an area on the back and scalp, present for about a year, the rash is itchy and painful, PCP prescribed triamcinolone cream and betamethasone cream which she notes does not stay on her skin very well because she wears compression socks, also c/o morning stifness in the hands, treats with ibuprofen. Review of Systems: General: Feeling well. Skin: No other skin concerns. Medications: Reviewed in eD-H Allergies: Reviewed in eD-H Skin Examination: Focused skin examination of the scalp, arms, legs, hands, chest, abdomen, back was normal with the exception of the findings below. Assessment/Plan # Psoriasis, BSA 10% - pink scaly papules and thin plaques on the bilateral legs, thick plaque on the right arm, mild pitting in the fingernails, no onycholysis - reviewed condition with patient, inflammatory autoimmune condition. Reviewed treatment optoins including light therapy, Systemic treatment options include: MTX, cyclosporine and biologics such as Humira(Adulinumab), Stelara(ustikinumab), Cosentyx(secukinumab), and Taltz(ixekizumab) - patient endorses personal history of ovarian cancer - plan to start on a biologic, will confer with pharmacist regarding which will be covered for patient Plan: - X-ray of hands due to joint stiffness to r/o PsA - Labs: CBC, CMP, Hep B, Hep C, Quant Gold - in the meantime she can continue Rx: triamcinolone cream or Rx: betamethasone cream to affected areas RTC: Pending biologic start []Note routed to litigation legal secretary []Recall placed in scheduling system []Appointment scheduled at checkout Scribe attestation: Shelley Chan CMA has performed the documentation for this encounter in the presence of and acting as a scribe for Bryce Trujillo MD. I performed the above scribed service and agree with the accuracy of the documentation in this encounter. Reviewed and signed by: Bryce Trujillo MD Dermatology [facility] Bryce Trujillo MD - 10/30/2021 2:15 PM EDT Biologic Start Screening labs: CMP with normal kidney and LFTs Notable elevation in glucose with known hx of diabetes. CBC. Mild elevation in WBCs Hep B and Hep C screening negative TB screening pending. Will inform patient once results back Xray findings most consistent with OA. Pt should follow up with PCP. Seen and reviewed by: Bryce Trujillo MD Staff Pharmacy Informaticist Department of Dermatology Bryce Trujillo MD - 10/30/2021 2:15 PM EDT Biologic Start Screening labs: TB screening Negative Seen and reviewed by: Bryce Trujillo MD Staff Pharmacy Informaticist Department of Dermatology documented in this encounter Plan of Treatment Not on filedocumented as of this encounter Procedures Procedure Name Priority Date/Time Associated Comments Diagnosis HC VENIPUNCTURE Routine 10/30/2021 2:59 PM High risk Result s for this EDT medication use procedure are in the results section. HEMOGRAM Routine 10/30/2021 2:59 PM High risk Results f or this EDT medication use procedure are in the results section. DIFFERENTIAL, Routine 10/30/2021 2:59 PM High risk Results for this AUTOMATED EDT medication use procedure are in the results section. HC HEPATITIS C Routine 10/30/2021 2:59 PM High risk Results for this ANTIBODY EDT medication use procedure are in the results section. HC HEPATITIS B SURFACE Routine 10/30/2021 2:59 PM High risk Results for this AB EDT medication use procedure are in the results section. HC HEPATITIS B SURFACE Routine 10/30/2021 2:59 PM High risk Results for this AG EDT medication use procedure are in the results section. HC CBC,PLT & AUTO DIFF Routine 10/30/2021 2:59 PM High risk EDT medication use COMPREHENSIVE Routine 10/30/2021 2:59 PM High risk Results for this METABOLIC PANEL EDT medication use procedure are in (NON-FASTING) the results section. documented in this encounter Results XR Hand Min 3 views Bilat (Generic) (10/30/2021 3:44 PM EDT) Anatomical Region Laterality Modality Hand Bilateral Digital Radiography Specimen (Source) Anatomical Location Collection Method / Collectio n Time Received Time / Laterality Volume Impressions 10/30/2021 4:09 PM EDT 1. ??Osteoarthropathy of multiple IP joints and bilateral basal joints 2. ??A few marginal radiolucencies at sc attered DIP and RIGHT 3 MCP joints are nonspecific and likely represent degener ative cysts if there is absence of known underlying inflammatory arthropathy. Thank you for letting us participate in the care of this patient. ??If you are a health care provider and have any questi ons regarding this report, please contact the number below. ??For patients who have questions please contact the health health care assistant that requested your imaging first. ? Electronically signed by: Alesia Johnson MD, [facility] ([phone]), at 10/30/2021 4:09 PM Narrative 10/30/2021 4:09 PM EDT EXAMINATION: XR HAND MIN 3 VIEWS BILAT (GENERIC) CLINICAL HISTORY: psoriatic arthrirtis - patient with psoriasis and morning stiffness in hands, , entered by [employer] service TECHNIQUE: Bilateral hands, 4 views each hand COMPARISON: None FINDINGS: BONES: No periostitis, ankylosis, acro o steolysis or periostitis. SOFT TISSUES: Symmetric soft tissues. No soft tissue m ineralization. JOINTS: 2-5 IP joints- marginal osteophytes at m ultiple DIP and scattered PIP joints with minimal joint space narrowing. Arely inal radiolucencies at LEFT second and third middle phalangeal heads are likely degenerative in nature. 2-5 MCP joints- solitary well-circumscri bed radiolucency in RIGHT third metacarpal head likely is degenerative i n nature. No other erosions seen. Thumb (Basal, scaphoid trapezial trapezo id [STT] and 1 MCP & 1 IP joints)- basal joint osteoarthropathy with narrow ed joint space, subchondral sclerosis and osteophyte formation. Radial carpal joint- preserved joint spa hung and no erosions Distal radioulnar joint- congruent Procedure Note Alesia Johnson MD - 10/30/2021Formatt ing of this note might be different from the original. EXAMINATION: XR HAND MIN 3 VIEWS BILAT ( GENERIC) CLINICAL HISTORY: psoriatic arthrirtis - patient with psoriasis and morning stiffness in hands, , entered by [employer] service TECHNIQUE: Bilateral hands, 4 views each hand COMPARISON: None FINDINGS: BONES: No periostitis, ankylosis, acro o steolysis or periostitis. SOFT TISSUES: Symmetric soft tissues. No soft tissue m ineralization. JOINTS: 2-5 IP joints- marginal osteophytes at m ultiple DIP and scattered PIP joints with minimal joint space narrowing. Arely inal radiolucencies at LEFT second and third middle phalangeal heads are likely degenerative in nature. 2-5 MCP joints- solitary well-circumscri bed radiolucency in RIGHT third metacarpal head likely is degenerative i n nature. No other erosions seen. Thumb (Basal, scaphoid trapezial trapezo id [STT] and 1 MCP & 1 IP joints)- basal joint osteoarthropathy with narrow ed joint space, subchondral sclerosis and osteophyte formation. Radial carpal joint- preserved joint spa hung and no erosions Distal radioulnar joint- congruent IMPRESSION 1. Osteoarthropathy of multiple IP joint s and bilateral basal joints 2. A few marginal radiolucencies at scat tered DIP and RIGHT 3 MCP joints are nonspecific and likely represent degener ative cysts if there is absence of known underlying inflammatory arthropathy. Thank you for letting us participate in the care of this patient. If you are a health care provider and have any questi ons regarding this report, please contact the number below. For patients w ho have questions please contact the health health care assistant that requested your imaging first. Bryce Trujillo MD IMG DX ORDERABLES (ABNORMAL) Differential, Automated (10/30/2021 2:59 PM EDT) [facility] Method Time Signature Neutrophils % 73.3 % [facility] Neutr Abs (ANC) 9.45 (H) 1.70 - [facility] 6.10 [facility] x10(3)/[facility] LABORATORY Lymphocytes % 18.7 % [facility] Lymphocytes Abs 2.4 0.9 - 3.2 [facility] x10(3)/[facility] LABORATORY Monocytes % 5.1 % [facility] Monocyte Abs 0.6 0.3 - 0.9 [facility] x10(3)/[facility] LABORATORY Eosinophils % 1.6 % [facility] Eosinophils Abs 0.2 0.0 - 0.4 [facility] x10(3)/[facility] LABORATORY Basophils % 0.8 % [facility] Basophils Abs 0.1 0.0 - 0.1 [facility] x10(3)/[facility] LABORATORY Immature Gran % 0.50 % [facility] Comment: Immature granulocytes(IG's)percentage an d absolute count will include metamyelocytes, myelocytes, and promyelo cytes. Blood smears from CBCs yielding IG's will be scanned manually for conccarmen danprabhu. If this scan disagrees with the automated IG or if promyelocytes are not ed, a manual differential will be performed. Ly Gran Abs 0.06 (H) 0.00 - 0.04 x10(3)/[facility] LABORATORY Specimen Anatomical Collection Method Collection Time Receive d Time (Source) Location / / Volume Laterality Blood 10/30/2021 2:59 PM 6:34 EDT PM EDT Resulting Agency Comment Spec In Lab Bryce Trujillo MD HEMATOLOGY ORDERABLES Performing Organization Address City/State/Z[place] [address] (ABNORMAL) Hemogram (10/30/2021 2:59 PM EDT) Analysis Performed At Patho logist Time Signature WBC 12.9 (H) 4.0 - 9.5 [facility] x10(3)/[facility] LABORATORY RBC 4.87 4.00 - [facility] 5.21 [facility] x10(6)/[facility] LABORATORY Hemoglobin 15.7 (H) 11.7 - [facility] 15.5 g/dL [facility]ORATORY Hematocrit 44.6 35.7 - [facility] MCV 91.6 82.6 - [facility] 94[facility]4 [facility] LABORATORY MCH 32.2 (H) 27.1 - [facility] BILL 32.0 pg [facility] MCHC 35.2 (H) 31.7 - [facility] 35.0 g/dL [facility]ORY Platelets 213 145 - 357 [facility] x10(3)/[facility] LABORATORY RDWSD 42.5 37.0 - [facility] BILL 46.0 [facility] LABORATORY RDWCV 12.7 11.5 - [facility] BILL 14.1 % [facility] LABORATORY MPV 10.1 7.6 - 12.9 [facility] LABORATORY nRBC % Auto 0.0 % [facility] nRBC Abs Auto 0.000 0.000 - [facility] BILL 0.000 [facility] x10(3)/[facility] LABORATORY Specimen Anatomical Collection Method Collection Time Receive d Time (Source) Location / / Volume Laterality Blood 10/30/2021 2:59 PM 2 6:34 EDT PM EDT Resulting Agency Comment Spec In Lab Bryce Trujillo MD HEMATOLOGY ORDERABLES Performing Organization Address City/[facility]/[place] [address] QuantiFERON-TB Gold (10/30/2021 2:59 PM EDT) [facility] Method Time Signature QFT Nil 0.044 IU/mL [facility] QFT TB Ag1-Nil -0.007 IU/mL [facility] QFT TB Ag2-Nil -0.006 IU/mL [facility] QFT 9.956 IU/mL [facility] Mitogen-Nil [facility] Quantiferon TB Negative Negative [facility] Quantiferon TB M. tuberculosis infection NOT likely [facility] Inter A negative specimen should h ave a TB1 Ag minus Nil value and TB2 Ag minus Nil [place] value of less than 0.35 IU/mL OR a TB1 Ag minus Nil or TB2 Ag minus Nil value [facility] greater than or equal to 0.35 IU/mL AND a TB Ag minus Nil value from the same HOSPITAL tube of less than 25% of the Nil value. A negative spe cimen must also have a LABORATORY mitogen minus Nil value greater than or equal to 0.5 IU/mL. A negative QFT-Plus result d oes not preclude the possibility of M. tuberculosis infection. False negative re sults can occur due to stage of infection (specimen obtained prior to the development of immune response), co- morbid conditions which affect immune function, or other immunological factors . Specimen Anatomical Collection Method Collection Time Receive d Time (Source) Location / / Volume Laterality Blood 10/30/2021 2:59 PM 2 7:23 EDT AM EDT Resulting Agency Comment Spec In Lab Bryce Trujillo MD CHEMISTRY ORDERABLES Performing Organization Address City/[facility]/[place] [address] Hepatitis C Antibody (10/30/2021 2:59 PM EDT) Analysis Performed At Patho logist Time Signature Hepatitis C Ab Negative Negative [facility] Specimen Anatomical Collection Method Collection Time Receive d Time (Source) Location / / Volume Laterality Blood 10/30/2021 2:59 PM 2 5:42 EDT PM EDT Resulting Agency Comment Spec In Lab Bryce Trujillo MD IMMUNOLOGY ORDERABLES Performing Organization Address City/[facility]/[place] [address] Hepatitis B Surface Antigen (10/30/2021 2:59 PM EDT) [facility] Signature HepB Surface Negative Negative [facility] LABORATORY Specimen Anatomical Collection Method Collection Time Receive d Time (Source) Location / / Volume Laterality Blood 10/30/2021 2:59 PM 2 5:42 EDT PM EDT Resulting Agency Comment Spec In Lab Bryce Trujillo MD CHEMISTRY ORDERABLES Performing Organization Address City/[facility]/[place] [address] Hepatitis B Surface Antibody (10/30/2021 2:59 PM EDT) P athologist Signature HepB Surface 3.9 IU/L [facility] Ab Quant [facility] Comment: HepB Surface Ab Quant: Unvaccinated: < 8.5 IU/L Vaccinated: > 11.5 IU/L HepB Surface Ab Negative [facility] Comment: Patient is presumed to be not vaccinated or immune to HBV infection. Expected Results: Vaccinated: Positive Unvaccinated: Negative Specimen Anatomical Collection Method Collection Time Receive d Time (Source) Location / / Volume Laterality Blood 10/30/2021 2:59 PM 2 5:42 EDT PM EDT Resulting Agency Comment Spec In Lab Bryce Trujillo MD IMMUNOLOGY ORDERABLES Performing Organization Address City/[facility]/[place] [address] (ABNORMAL) Comprehensive metabolic panel (non-fasting) (10/30/2021 2:59 PM EDT) athologist Signature Glucose Lvl 363 (H) 65 - 199 [facility] mg/dL [facility] Comment: Diabetes: >=200 mg/dL plus symp toms BUN 24 (H) 8 - 18 mg/dL [facility] Creatinine 1.14 0.70 - 1.20 mg/dL [facility] Sodium 132 (L) 135 - 145 mmol/L [facility] Potassium 3.8 3.5 - 5.0 mmol/L [facility] Comment: Please note: ??Patients with WBC >100,00 0 may have falsely elevated Potassium levels. ??For accurate Potassium quantif ication in these patients send serum separator tube (gold top) for subsequent determinations. ??Contact the Clinical Chemistry Laboratory if there are any qu estions. Chloride 92 (L) 98 - 107 mmol/L [facility] CO2 28 22 - 31 mmol/L [facility] Anion Gap 12 5 - 15 mmol/L [facility] Calcium 10.1 8.5 - 10.5 mg/dL [facility] Total Protein 7.4 6.1 - 8.0 g/dL [facility] Albumin 4.6 3.2 - 5.2 g/dL [facility] AST 18 0 - 30 unit/L [facility] ALT 24 0 - 30 unit/L [facility] Alk Phos 64 35 - 105 unit/L [facility] Total Bilirubin 0.6 0.2 - 1.3 mg/dL [facility] Estimated GFR 52 (L) >=60 mL/min/1.73 m?? [facility] Comment: This patient? s estimated glomerular filtration rate (eGFR) is between 52 mL/min/1.73 m2 (patients with less muscl e mass) and 61 mL/min/1.73 m2 (patients with more muscle mass) as determined by the CKD-EPI equation. Assessment of eGFR is not appropriate when creatinine concentrations are rapidly changing. For clinical decisions where creatinine clearance will affect therapy, a 24-hour urine creatinine clearance may b e advised. Assignment of CKD stage 1 - 5 for patien ts with an eGFR near the transition point between stages may be based on cli nical assessment of muscle mass and symptoms in addition to eGFR. 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
--- OUTSIDE RECORDS SUMMARY | 2022-01-25 00:31 | XMS_ITS | Clinical Summary ---
:1960 Author Organization [facility] [place] [address] Care Team Providers Name Role Phone Courtney Malone JOCELINE Primary Care Provider Allergies No known active allergies Medications Medication Sig Dispensed Refills Start Date End Date Status lisinopril (ZESTRIL) Take 40 mg by mouth 0 0 Active 10 mg tablet daily. lovastatin (MEVACOR) Take 40 mg by mouth 0 0 Active 40 mg Tablet nightly. glipiZIDE Take 10 mg by mouth 2 0 07/01/2016 Active (Glucotrol) 10 mg times daily (before Tablet meals). SHINGRIX, PF, 50 inject 0.5 milliliter 0 01/01/2019 Active mcg/0.5 mL intramuscularly Suspension for Reconstitution injection Miscellaneous by [facility].(Non-Drug; 0 Active Medical Supply Misc Combo Route) route. betamethasone APPLY TOPICALLY DAILY 0 08/13/2021 Active dipropionate NEEDED FOR SKIN (Diprolene) 0.05 % IRRITATION Cream triamcinolone APPLY EXTERNALLY TO 0 05/30/2021 Active (Kenalog) 0.1 % THE AFFECTED AREA Cream TWICE DAILY insulin glargine Inject 22 Units 0 Active (Lantus;Semglee) 100 subcutaneously unit/mL Solution nightly. ustekinumab Inject the contents 0.5 mL 3 10/30/2021 Active (Stelara) 45 mg/0.5 of one syringe (45 mL subcutaneous mg) under the skin injection once at weeks 0 and 4, and then once every 12 weeks thereafter chlorthalidone Take 25 mg by mouth 0 Active (Hygroten) 25 mg daily. Tablet Active Problems Problem Noted Date Ovarian cancer 11/16/2010 Overview: Stage IIC, grade I ovarian cancer, s/p e xploratory laparotomy, total abdominal hysterectomy, bilateral salpingo-oophorectomy, appendectomy, omentectomy and staging biopsies on January 04, 2003. She compl eted 3 cycles of carboplatin and paclita xel chemotherapy per GOG 175 in February 2003. Hypertension 11/16/2010 Obesity 11/16/2010 Tobacco dependence due to cigarettes 11/16/2010 Diabetes mellitus type 2 in obese 11/16/2010 Encounters Date Type Specialty Care Team Description 11/28/2021 Specialty Pharmacy Pharmacy Sly Benjamin V, [facility] Med ication Management 11/01/2021 Telephone Dermatology Bryce Trujillo MD 11/01/2021 Specialty Pharmacy Pharmacy Kell Louis Caroline or Authorization (Stelara 45mg/0 .5ml Syringes) 10/30/2021 Hospital Encounter Radiology Bryce Trujillo, Psodimitrios granado MD 10/30/2021 Office Visit Dermatology Bryce Trujillo, Psoriasis; High risk medic ation use 10/30/2021 Refill Dermatology Bryce Trujillo MD 10/30/2021 Specialty Pharmacy Pharmacy Jonathan Sky Pat ient Education [facility] 10/30/2021 Specialty Pharmacy Pharmacy Anselmo Oconnor ecialty Pharmacy Review from Last 3 Months Immunizations Name Administration Dates Next Due Td, adult 06/20/2005, 06/23/1995 Social History Tobacco Use Types Packs/Day Years Used Date Current Every Day Smoker Cigarettes 0.5 20 Smokeless Tobacco: Never Used Comments: had quit for 2 years in 2009 Alcohol Use Standard Drinks/Week Comments No 0 (1 standard drink = 0.6 oz pure alcoho l) Sex Assigned at Date Recorded Not on file Last Filed Vital Signs Vital Sign Reading Time Taken Comments Blood Pressure 171/103 01/11/2019 1:33 PM EDT Pulse 101 01/11/2019 1:33 PM EDT Temperature 36.1 ??C (97 ??F) 01/11/2019 1:33 PM EDT Respiratory Rate 17 01/11/2019 1:33 PM EDT Oxygen Saturation 97% 01/02/2018 10:13 AM EDT Inhaled Oxygen Concentration - - Weight 86.8 kg (191 lb 5.8 oz) 01/11/2019 1:33 PM EDT Height 162 cm (5' 3.78) 01/11/2019 1:33 PM EDT Body Mass Index 33.07 01/11/2019 1:33 PM EDT Plan of Treatment Health Maintenance Due Date Last Done Comments Covid-19 Vaccine (#1) 1965 Pneumococcal Vaccine: At-Risk 5-64yrs (1 - 1966 PCV) DM Hemoglobin A1c 1970 DM Opthalmology Exam 1970 DM Urine Microalbumin yearly 1970 HIV screen 1978 Tdap adult 12/20/1979 HPV test 1990 PAP Smear 1990 Breast Cancer Share Decision Needed 2000 Colonoscopy 2005 Breast Cancer screening 2010 Zoster vaccine (1 of 2) 2010 Tetanus vaccine 06/20/2015 06/20/2005, 06/23/1995 Advance Directive 12/20/2015 Influenza (Flu) vaccine (1 of 1 - 01/24/2022 Influenza standard series) DM Creatinine yearly 10/30/2022 10/30/2021 Hepatitis C Screening Completed 10/30/2021 Procedures Procedure Name Priority Date/Time Associated Comments Diagnosis XR HAND MIN 3 VIEWS Routine 10/30/2021 3:44 PM Psoriasis Re sults for this BILAT EDT procedure are i n the results section. DIFFERENTIAL, Routine 10/30/2021 2:59 [...] procedure are in (NON-FASTING) the results section. HC HEPATITIS B SURFACE [...] procedure are in the results section. HC VENIPUNCTURE Routine 10/30/2021 2:59 PM High risk Result s for this EDT medication use procedure are in the results section. from Last 3 Months Results XR Hand Min 3 views Bilat [...] who have questions please contact the health healthcare project manager that requested your imaging first. ? Narrative 10/30/2021 4:09 PM EDT EXAMINATION: XR HAND MIN 3 VIEWS BILAT (GENERIC) CLINICAL HISTORY: psoriatic arthrirtis - patient with psoriasis and morning stiffness in hands, , entered by [facility] service TECHNIQUE: Bilateral hands, 4 views each [...] morning stiffness in hands, , entered by [employer] service TECHNIQUE: Bilateral hands, 4 views each [...] ho have questions please contact the health healthcare project manager that requested your imaging first. Bryce Trujillo MD IMG DX ORDERABLES QuantiFERON-TB Gold (10/30/2021 2:59 PM EDT) [facility] Method Time Signature QFT Nil 0.044 IU/mL [facility] QFT TB Ag1-Nil -0.007 IU/mL [facility] QFT TB Ag2-Nil -0.006 IU/mL [facility] QFT 9.956 IU/mL [facility] Mitogen-Nil [facility] Quantiferon TB Negative Negative [facility] Quantiferon TB M. tuberculosis infection NOT likely [facility] Inter A negative specimen should h ave a TB1 Ag minus Nil value and TB2 Ag minus Nil BILL value of less than 0.35 IU/mL OR [...] Organization Address City/State/[place] [address] (ABNORMAL) Hemogram (10/30/2021 2:59 PM EDT) Analysis Performed At Patho logist Time Signature WBC 12.9 (H) 4.0 - 9.5 [facility] x10(3)/[facility] LABORATORY RBC 4.87 4.00 - [place]IM[place] BILL 5.21 [facility] x10(6)/[facility] LABORATORY Hemoglobin 15.7 (H) 11.7 - [facility] 15.5 g/dL [facility] Hematocrit 44.6 35.7 - [facility] 45.8 % [facility] MCV 91.6 82.6 - [facility] 94.4 [facility] LABORATORY MCH 32.2 (H) 27.1 - [facility] 32.0 pg [facility] MCHC 35.2 (H) 31.7 - [facility] 35.0 g/dL [facility] Platelets 213 145 - 357 [facility] x10(3)/[facility] LABORATORY RDWSD 42.5 37.0 - [facility] 46.0 [facility] LABORATORY RDWCV 12.7 11.[address] [facility] 14.1 % [facility] MPV 10.1 7.6 - 12.9 [facility] LABORATORY nRBC % Auto 0.0 % [facility] nRBC Abs Auto 0.000 0.000 - [facility] 0.000 [facility] x10(3)/[facility] LABORATORY Specimen Anatomical Collection Method Collection Time Receive d Time (Source) Location / / Volume Laterality Blood 10/30/2021 2:59 PM 2 6:34 EDT PM EDT Resulting Agency Comment Spec In Lab Bryce Trujillo MD HEMATOLOGY ORDERABLES Performing Organization Address City/State/[place] [address] (ABNORMAL) Differential, Automated (10/30/2021 2:59 PM EDT) Patholo gist Method Time Signature Neutrophils % 73.3 % [facility] Neutr Abs (ANC) 9.45 (H) 1.70 - [facility] 6.10 [facility] x10(3)/[facility] LABORATORY Lymphocytes % 18.7 % [facility] Lymphocytes Abs 2.4 0.9 - 3.2 [facility] x10(3)/[facility] LABORATORY Monocytes % 5.1 % [facility] Monocyte Abs 0.6 0.3 - 0.9 [facility] x10(3)/[facility] LABORATORY Eosinophils % 1.6 % [facility] Eosinophils Abs 0.2 0.0 - 0.4 [facility] x10(3)/[facility] LABORATORY Basophils % 0.8 % [facility] Basophils Abs 0.1 0.0 - 0.1 [facility] x10(3)/[facility] LABORATORY Immature Gran % 0.50 % [facility] Comment: Immature granulocytes(IG's)percentage an d absolute count will include metamyelocytes, myelocytes, and promyelo cytes. Blood smears from CBCs yielding IG's will be scanned manually for concor dance. If this scan disagrees with the automated IG or if promyelocytes are not ed, a manual differential will be performed. Ly Gran Abs 0.06 (H) 0.00 - 0.04 x10(3)/[facility] LABORATORY Specimen Anatomical Collection Method Collection Time Receive d Time (Source) Location / / Volume Laterality Blood 10/30/2021 2:59 PM 2 6:34 EDT PM EDT Resulting Agency Comment Spec In Lab Bryce Trujillo MD HEMATOLOGY ORDERABLES Performing Organization Address City/State/[place] [address] Hepatitis C Antibody (10/30/2021 2:59 PM EDT) Analysis Performed At Patho logist Time Signature Hepatitis C Ab Negative Negative [facility] Specimen Anatomical Collection Method Collection Time Receive d Time (Source) Location / / Volume Laterality Blood 10/30/2021 2:59 PM 2 5:42 EDT PM EDT Resulting Agency Comment Spec In Lab Bryce Trujillo MD IMMUNOLOGY ORDERABLES Performing Organization Address City/[facility]/[place]IP [place] [address] Hepatitis B Surface Antibody (10/30/2021 2:59 PM EDT) athologist Signature HepB Surface 3.9 IU/L [facility] Ab Quant [facility] Comment: HepB Surface Ab Quant: Unvaccinated: < 8.5 IU/L Vaccinated: > 11.5 IU/L HepB Surface Ab Negative [facility] Comment: Patient is presumed to be not vaccinated or immune to HBV infection. Expected Results: Vaccinated: Positive Unvaccinated: Negative Specimen Anatomical Collection Method Collection Time Receive d Time (Source) Location / / Volume Laterality Blood 10/30/2021 2:59 PM 2 5:42 EDT PM EDT Resulting Agency Comment Spec In Lab Bryce Trujillo MD IMMUNOLOGY ORDERABLES Performing Organization Address City/[facility]/ZIP Code Phon e Number [address] Hepatitis B Surface Antigen (10/30/2021 2:59 PM EDT) Analysis Performed At Patho logist Time Signature HepB Surface Negative Negative [facility] LABORATORY Specimen Anatomical Collection Method Collection Time Receive d Time (Source) Location / / Volume Laterality Blood 10/30/2021 2:59 PM 2 5:42 EDT PM EDT Resulting Agency Comment Spec In Lab Bryce Trujlilo MD CHEMISTRY ORDERABLES Performing Organization Address City/[facility]/ZIP [place] [address] (ABNORMAL) Comprehensive metabolic panel (non-fasting) (10/30/2021 2:59 PM EDT) P athologist Signature Glucose Lvl 363 (H) 65 - 199 [facility] mg/dL [facility] Comment: Diabetes: >=200 mg/dL plus symp toms BUN 24 (H) 8 - 18 mg/dL [facility] Creatinine 1.14 0.70 - 1.20 mg/dL [facility] Sodium 132 (L) 135 - [...] Chloride 92 (L) 98 - 107 mmol/L [facility] CO2 28 22 - 31 mmol/L [facility] Anion Gap 12 5 - 15 mmol/L [facility] Calcium 10.1 8.5 - 10.5 mg/dL [facility] Total Protein 7.4 6.1 - 8.0 g/dL [facility] Albumin 4.6 3.2 - 5.2 g/dL [facility] AST 18 0 - 30 unit/L [facility] ALT 24 0 - 30 unit/L [facility] Alk Phos 64 35 - 105 unit/L [facility] Total Bilirubin 0.6 0.2 - 1.3 mg/dL [facility] Estimated GFR 52 (L) >=60 mL/min/1.73 m?? [facility] Comment: This patient? s estimated [...] Organization Address City/State/[place] [address] from Last 3 Months Insurance Payer Benefit Plan / Subscriber ID Effective Dates Phone Addre ss Type Group [employer] [place] [id number] 2021-Present [address] [place] [address] [id number] ([address] [phone] [facility] ([place]) [place] [address] Care Teams Cold Storage Superintendent Relationship Specialty Start Date End Date Courtney Malone APRN PCP - General Family Medicine 01/02/[address] [place], [place] [id number]
--- OUTSIDE RECORDS SUMMARY | 2022-01-25 00:31 | XMS_ITS | Encounter Summary ---
:1960 Author Organization [facility] [place] [address] Care Team Providers Name Role Phone Courtney Malone APRN Primary Care Provider Encounter Details Date Type Department Care Team Description 01/11/2019 Hospital Encounter Hematology and Maligna nt neoplasm of Oncology at [facility] ovary, [place] [address] Social History Tobacco Use Types Packs/Day [...] Sig Dispensed Refills Start Date End Date SHINGRIX, PF, 50 inject 0.5 milliliter 0 01/02/20 19 mcg/0.5 mL Suspension intramuscularly for Reconstitution injection Miscellaneous Medical by Misc.(Non-Drug; 0 Supply Misc Combo Route) route. glipiZIDE (Glucotrol) Take 10 mg by mouth 2 0 10/2016 10 mg Tablet times daily (before meals). lisinopril (ZESTRIL) Take 40 mg by mouth 0 2009 10 mg tablet daily. lovastatin (MEVACOR) Take 40 mg by mouth 0 2009 40 mg Tablet nightly. metFORMIN (GLUCOPHAGE) Take 500 mg by mouth 2 0 10/30/2021 500 mg tablet times daily (with meals). documented as of this encounter Plan of Treatment Not on filedocumented as of this encounter Procedures Procedure Name Priority Date/Time Associated Diagnosis Comme nts HC CANCER ANTIGEN Routine 01/11/2019 2:21 PM Malignant neoplas m Results for this 125 EDT of ovary, procedure are i n unspecified the results laterality section. documented in this encounter Results Cancer Antigen 125 (01/11/2019 2:21 PM EDT) P athologist Signature CA 125 8.2 <=38.[address] [facility] unit/mL [facility] Comment: CA 125 Reference Interval ??Postmenopausal: 6.2 to 31.5 U/mL. ??Premenopausal: 6.9 to 45.9 U/mL. ??Pre and Postmenopausal subjects combi francois: 6.4 to 38.1 U/mL. Specimen Anatomical Collection Method Collection Time Receive d Time (Source) Location / / Volume Laterality Blood specimen 01/11/2019 2:21 PM 019 2:36 (specimen) EDT PM EDT Resulting Agency Comment Spec In Lab Christie Masters APRN CHEMISTRY ORDERABLES Performing Organization Address City/State/[place] [address] documented in this encounter Visit Diagnoses Diagnosis Malignant neoplasm of ovary, unspecified laterality documented in this encounter Care Teams Prenatal Genetic Counselor Relationship Specialty Start Date End Date Courtney Malone APRN PCP - General Family Medicine 01/02/[address] [place] [address] documented as of this encounter
--- OUTSIDE RECORDS SUMMARY | 2022-01-25 00:31 | XMS_ITS | Encounter Summary ---
:1960 Author Organization [facility] [place] [address] Care Team Providers Name Role Phone Courtney Malone APRN Primary Care Provider Reason for Visit Reason Comments Specialty Pharmacy Review Encounter Details Date Type Department Care Team Description 10/30/2021 Specialty Pharmacy Pharmacy at [facility] [place] [phone] Social History Tobacco Use Types Packs/Day Years Used Date Current Every Day Smoker Cigarettes 0.5 20 Smokeless Tobacco: Never Used Comments: had quit for 2 years in 2009 Alcohol Use Standard Drinks/Week Comments No 0 (1 standard drink = 0.6 oz pure alcoho l) Sex Assigned at Date Recorded Not on file documented as of this encounter Progress Notes Anselmo Oconnor - 10/30/2021 2:30 PM EDT The [facility] has completed a benefits investigation for Desiree Ching to review theireligibility to fill at [facility]. Per patient's medication list they are prescribed STELARA 45 MG/0.5 ML and the medication is currently filled at the [facility] pending the first fill. documented in this encounter Plan of Treatment Not on filedocumented as of this encounter Visit Diagnoses Not on filedocumented in this encounter Care Teams Blood Bank Coordinator Relationship Specialty Start Date End Date Courtney Malone APRN PCP - General Family Medicine 01/02/[address] [place] [address] documented as of this encounter
--- OUTSIDE RECORDS SUMMARY | 2022-01-25 00:31 | XMS_ITS | Encounter Summary ---
:1960 Author Organization [facility] [address] Care Team Providers Name Role Phone Courtney Malone APRN Primary Care Provider Encounter Details Date Type Department Care Team Description 11/01[facility]2021 [facility] [address] [facility] [place] [address] [facility] [phone] [place], [place] [address] (Wo rk) Social History Tobacco Use Types Packs/Day Years Used Date Current Every Day Smoker Cigarettes 0.5 20 Smokeless Tobacco: Never Used Comments: had quit for 2 years in 2009 Alcohol Use Standard Drinks/Week Comments No 0 (1 standard drink = 0.6 oz pure alcoho l) Sex Assigned at Date Recorded Not on file documented as of this encounter Miscellaneous Notes Telephone Encounter - Eva Becerril - 11/01/2021 4:29 PM EDT Desiree Ching returned a call to discuss the results of her x-rays and labs. Please reach out to patient at your soonest convenience. Tanisha Kern documented in this encounter Plan of Treatment Not on filedocumented as of this encounter Visit Diagnoses Not on filedocumented in this encounter Care Teams Campaign Specialist Relationship Specialty Start Date End Date Courtney Malone APRN PCP - General Family Medicine 01/02/[address] [place] [address] documented as of this encounter
--- OUTSIDE RECORDS SUMMARY | 2022-01-25 00:31 | XMS_ITS | Encounter Summary ---
:1960 Author Organization [facility] [place] [address] Care Team Providers Name Role Phone Courtney Malone APRN Primary Care Provider Reason for Visit Reason Comments Medication Management Encounter Details Date Type Department Care Team Description 11/28/2021 Specialty Pharmacy Pharmacy at [facility] Sly Benjamin V, [place] [phone] Social History Tobacco Use Types Packs/Day Years Used Date Current Every Day Smoker Cigarettes 0.5 20 Smokeless Tobacco: Never Used Comments: had quit for 2 years in 2009 Alcohol Use Standard Drinks/Week Comments No 0 (1 standard drink = 0.6 oz pure alcoho l) Sex Assigned at Date Recorded Not on file documented as of this encounter Progress Notes Sly Benjamin V, [facility] - 11/28/2021 3:50 PM EDT Specialty Pharmacy Consultation; Sly Leeh [facility] Comprehensive Medication Management (CMM): Specialty Consult, Opt Out Desiree Ching Diagnosis: Psoriasis Therapy Start Date: 11/07/2021 Contact in person or via telephone: Telephone Ms. Desiree Ching is a 60 y.o. (1960) female who was contacted in regard to specialty medication. Spoke with patient regarding Stelara . A review of the medication therapy was performed. The medication was refilled as scheduled, and all medication related questions and concerns were addressed. The specialty pharmacy staff will follow up with the patient 5-7 days prior to next refill. Is the patient willing to proceed with the Clinical Assessment? No Summary and Recommendations Patient is doing well with Stelara. She reports no changes in medications, medical conditions, or allergies and denies any adherence issues or adverse effects. Specialty pharmacy will follow up with patient at the next fill. Economic Assessment: Patient is agreeable to medication copay: Yes Copay Amount: ~ TBD Day Supply: 84 Date Needed: 12/05 Therapy Assessment: Appropriate Therapy: Yes Current Medication Dosing/Route/Frequency: Stelara 45mg/0.5mL Inject the contents of one syringe (45mg) under the skin once at weeks 0 and 4, and then once every 12 weeks thereafter Additional equipment/supplies required: yes - will mail out a sharps container to patient Care Plan Reviewed and Approved by Pharmacist : Yes Problem List: Patient Active Problem List Diagnosis Code ??? Ovarian cancer C56.9 ??? Hypertension I10 ??? Obesity E66.9 ??? Tobacco dependence due to cigarettes F17.210 ??? Diabetes mellitus type 2 in obese E11.69, E66.9 Medications Reviewed: Yes Medications reconciled: No Allergies Reviewed:Yes Allergies reconciled: No Pharmacist follow-up needed: Yes Informed patient of specialty pharmacy services: Yes Welcome Packet and Rights and Responsibilities: Patient provided welcome packet/rights and responsibilities: No, Yes Date Confirmed: 11/28/21 -Patient is aware a licensed pharmacist is available 24 hours a day, 7 days a week to discuss medication-related questions or concerns: Yes -Patient verbalizes understanding of the common side effect profile of their medication. The patientis able to call 911 or seek urgent care if signs/symptoms of allergy or harmful adverse reactions occur: Yes Patient understands no changes to current drug regimen were made at the appointment and that the pharmacist is providing recommendations (summary located at top of note) for provider review and follow up. Sly Benjamin RPH 11/28/21 3:53 PM documented in this encounter Plan of Treatment Not on filedocumented as of this encounter Visit Diagnoses Not on filedocumented in this encounter Care Teams Youth Care Specialist Relationship Specialty Start Date End Date Courtney Malone APRN PCP - General Family Medicine 01/02/[address] [place] [address] documented as of this encounter
--- OUTSIDE RECORDS SUMMARY | 2022-01-25 00:31 | XMS_ITS | Encounter Summary ---
:1960 Author Organization [facility] [address] Care Team Providers Name Role Phone Courtney Malone APRN Primary Care Provider Reason for Referral Consultation (Routine) - Authorized Specialty Diagnoses / Procedures Referred By Contact Refer red To Contact Dermatology Diagnoses Psoriasis Courtney Malone APRN [facility] Dermatology [address] [address] [place], [place] [address] [place] [address] Fax: Referral ID Status Reason Start Expiration Visits Visits Date Date Requested Authorized [id number] Authorized Consult, 08/20/2021 08/20/2022 6 6 Test & Treat PCP Updated and/or Approved Encounter Details Date Type Department Care Team Description 08/20/2021 Transcribe Orders eDH Incoming Referra ls Courtney Malone APRN Psoriasis [phone] [place], [place] [id number] (Wo rk) Social History Tobacco Use Types Packs/Day Years Used Date Current Every Day Smoker Cigarettes 0.5 20 Smokeless Tobacco: Never Used Comments: had quit for 2 years in 2009 Alcohol Use Standard Drinks/Week Comments No 0 (1 standard drink = 0.6 oz pure alcoho l) Sex Assigned at Date Recorded Not on file documented as of this encounter Plan of Treatment Scheduled Referrals Name Type Priority Associated Order Schedule Diagnoses Referral to Outpatient Referral Routine Psoriasis Ordered: Dermatology 08/20/2021 documented as of this encounter Visit Diagnoses Diagnosis Psoriasis Other psoriasis documented in this encounter Care Teams Trailer Steerer Relationship Specialty Start Date End Date Courtney Malone APRN PCP - General Family Medicine 01/02/[address] [place] [address] documented as of this encounter
--- OUTSIDE RECORDS SUMMARY | 2022-01-25 00:31 | XMS_ITS | Encounter Summary ---
:1960 Author Organization [facility] [place] [address] Care Team Providers Name Role Phone Unknown Primary Care Provider Unavailable Reason for Visit Reason Onset Date Comments Results 01/15/2012 Amended BRCA1 result Encounter Details Date Type Department Care Team Description 01/15/2012 Telephone Hematology and Jade Reyes, Result s (Amended BRCA1 Oncology at [facility] result) [facility] [place] [address] HEMATOLOGY/ONCOLOGY [phone] [place], [place] [address] (Wo rk) Social History Tobacco Use Types Packs/Day Years Used Date Former Smoker Cigarettes 1 20 Quit: 09/13/19 10 Smokeless Tobacco: Never Used Alcohol Use Standard Drinks/Week Comments No 0 (1 standard drink = 0.6 oz pure alcoho l) Sex Assigned at Date Recorded Not on file documented as of this encounter Miscellaneous Notes Telephone Encounter - Jade Reyes, MS - 01/15/2012 9:55 AM EDT We are writing to you to inform you that we have received updated information in regard to your BRCA1 and BRCA2 genetic test result. Below please find an explanation of the new information and its implications. Please do not hesitate to contact us if you have any questions. Initially, your Comprehensive BRACAnalysis test result showed a genetic variant of uncertain significance in the BRCA1 gene, specifically BRCA1 D3144D (4246C>G). At that time, this alteration had been previously observed in 7 unrelated families. It was never observed along with a deleterious or disease causing alteration (which would have made it highly unlikely coincidence if the B2546U variant were the cause of increased cancer risk). Therefore, we did not know if this alteration was a disease causing. Subsequently, we received an update that the alteration was most likely a normal polymorphism and not associated with a higher risk of cancer. Since then, [facility] has completed additional studies concluding that this alteration is a normal variant and definitely NOT associated with a higher risk for breast or ovarian cancer. Therefore, in summary, the genetic basis, if any, of the ovarian cancer in you has not been identified, this test result does not necessarily mean that your cancer was sporadic. This is because of two important limitations of the test. First, not allinherited predisposition to breast cancer is attributable to BRCA1 or BRCA2. Future research might identify other genes that when altered can increase one???s risk of cancer. Second, a small percentageof alterations in BRCA1 and BRCA2 are missed by the Comprehensive BRACAnalysis test. There is also another test called BRACAnalysis Rearrangement Test (LISA) which looks for additional alteration, specifically large deletions and rearrangements of the two genes, not picked up by Comprehensive BRACAnalysis. At this time, only some insurance companies are covering the cost of this test which is $700. We expect that next year most insurance companies will be covering the cost of this test. Feel free tocontact us next year if you are interested in pursuing additional testing. It is also unlikely that other relatives on your side of the family are at an increased risk of being BRCA1/2 alteration carriers. Therefore, we recommend that you continue with your current screening plan. We hope you find this information helpful. New information about familial cancer, screening, prevention, and genetic testing becomes available on a regular basis. Please contact us every couple of years to see if there is new information related to your situation. If any questions or concerns arise, pl ease do not hesitate to call us at or . documented in this encounter Plan of Treatment Not on filedocumented as of this encounter Visit Diagnoses Not on filedocumented in this encounter Care Teams Trim And Burr Operator Relationship Specialty Start Date End Date Unknown PCP - General 09/13/11 09/08/12 None documented as of this encounter
--- OUTSIDE RECORDS SUMMARY | 2022-01-25 00:31 | XMS_ITS | Encounter Summary ---
:1960 Author Organization [facility] [place] [address] Care Team Providers Name Role Phone Courtney Malone APRN Primary Care Provider Encounter Details Date Type Department Care Team Description 10/30/2021 [facility] [address] [facility] [address] [place] [address] [facility] [phone] [place], [place] [address] ( rk) Social History Tobacco Use Types Packs/Day [...] on filedocumented in this encounter Care Teams Taproom Attendant Relationship Specialty Start Date End Date Courtney Malone APRN PCP - General Family Medicine 01/02/[address] [place], [place] [id number] documented as of this encounter
--- OUTSIDE RECORDS SUMMARY | 2022-01-25 00:31 | XMS_ITS | Encounter Summary ---
:1960 Author Organization [place] [address] Care Team Providers Name Role Phone Unknown Primary Care Provider Unavailable Reason for Visit Reason Comments Established 6 month check Encounter Details Date Type Department Care Team Description 09/13/2011 Follow-Up Gynecology Oncology at Cathleen Daniel, History of ovarian [facility] [place] (Primary Dx) [facility] [place] [address] GYNECOLOGY ONCOLOGY [phone] [place] [address] (Wo rk) Social History Tobacco Use Types Packs/Day Years Used Date Former Smoker Cigarettes 06 14 Quit: 09/13/19 10 Smokeless Tobacco: Never Used Alcohol Use Standard Drinks/Week Comments No 0 (1 standard drink = 0.6 oz pure alcoho l) Sex Assigned at Date Recorded Not on file documented as of this encounter Last Filed Vital Signs Vital Sign Reading Time Taken Comments Blood Pressure 150/90 09/13/2011 8:43 AM EDT Pulse - - Temperature - - Respiratory Rate - - Oxygen Saturation - - Inhaled Oxygen Concentration - - Weight 97.5 kg (214 lb 15.2 oz) 09/13/2011 8:43 AM EDT Height - - Body Mass Index - - documented in this encounter Progress Notes Janeth Yan MD - 09/13/2011 9:34 AM EDT Follow Up Visit Reason for Visit: Surveillance exam, history of ovarian cancer. Patient Active Problem List Diagnoses ??? Ovarian cancer Stage IIC, grade I ovarian cancer, s/p exploratory laparotomy, total abdominal hysterectomy, bilateral salpingo-oophorectomy, appendectomy, omentectomy and staging biopsies on January 04, 2003. She completed 3 cycles of carboplatin and paclitaxel chemotherapy per GOG 175 in February 2003. ??? Hypertension ??? Obesity ??? History of tobacco use 20 pack year history, none for 20 years ??? Diabetes mellitus type 2 in obese Subjective: Desiree is feeling well. She has no complaints. She specifically denies any new abdominalor pelvic pain/pressure, vaginal bleeding, changes in her bowel or bladder. Her appetite has been good but has not been making very healthy choices. She has not been exercising enough and has been thinking about starting to do Tae Dom Do with her grandsons. Her disesase is followed by Ca-125 which was 8 last year. Pending today. ROS: As above. Current outpatient prescriptions ordered prior to encounter Medication Sig Dispense Refill ??? multivitamin (THERAGRAN) tablet ??? lisinopril (ZESTRIL) 10 mg tablet ??? aspirin 81 mg EC tablet ??? lovastatin (MEVACOR) 20 mg tablet ??? metFORMIN (GLUCOPHAGE) 500 mg tablet ??? buPROPion (WELLBUTRIN XL) 150 mg 24 hr tablet Allergies No Known Allergies Exam Filed Vitals: 09/13/11 0843 BP: 150/90 General: Well appering woman. Neck: no cervical, supraclavicular or axillary adenopathy. Abdomen: Well healed scars. Nontender. Easily reducible ventral hernia. No other masses. Breasts: No discrete masses. No skin changes. Pelvic: Normal external genitalia. On bimanual exam the vagina is smooth and without masses or nodularity. The cuff is intact and there are no pelvic masses palpable. There is a small adhesion at the top of her vagina on the left side. Rectovaginal exam in confirmatory. Assessment: 50 y.o. woman with a history of IIC ovarian cancer s/p surgery and 3 cycles of adjuvant chemotherapy in 2002. She is 9 years since treatment without evidence of recurrent disease. Plan: Check Ca-125 today. F/up 1 year. Pt to schedule colonoscopy and mammography locally. I saw and evaluated the patient with Dr. Sharpe, and I confirmed the history and physical findings as outlined, and I agree with the note as written. She may continue to return for annual examination. documented in this encounter Plan of Treatment Not on filedocumented as of this encounter Procedures Procedure Name Priority Date/Time Associated Diagnosis Comme nts CANCER ANTIGEN 125 Routine 09/13/2011 9:45 AM History of ovari an Results for this EDT cancer procedure are i n the results section. documented in this encounter Results Cancer Antigen 125 (09/13/2011 9:45 AM EDT) athologist Signature CA 125 6 <=20 u/ml [facility] Comment: Beginning 04/25/08 the CA125 assay will b e performed by a new method. ??This new method will yield results that are, on a verage, 20% lower than the previous method. ??If you have been monitoring pa tients, please interpret serial CA125 results with caution with regards to the reports dated after 04/24/08, taking into account this downshift. ??No adjust ment is needed for new patients being monitored after 04/24/08. ??The new refe rence range for the assay will be <21 U/mL versus <35 U/mL with the previous m ethod. ??If you have any questions, please contact the lab at [phone]. Specimen Anatomical Collection Method Collection Time Receive d Time (Source) Location / / Volume Laterality Blood specimen 09/13/2011 9:45 AM 012 2:26 (specimen) EDT PM EDT Resulting Agency Comment Spec In Lab Cathleen Daniel MD CHEMISTRY ORDERABLES Performing Organization Address City/State/ZIP Code Phon e Number [place] [id number] [facility] documented in this encounter Visit Diagnoses Diagnosis History of ovarian cancer - Primary Personal history of malignant neoplasm o f ovary documented in this encounter Care Teams Adjunct Instructor In Economics Relationship Specialty Start Date End Date Unknown PCP - General 09/13/11 09/08/12 None documented as of this encounter
--- OUTSIDE RECORDS SUMMARY | 2022-01-25 00:31 | XMS_ITS | Encounter Summary ---
:1960 Author Organization [facility] [place] [address] Care Team Providers Name Role Phone Courtney Malone APRN Primary Care Provider Encounter Details Date Type Department Care Team Description 01/02/2018 Hospital Encounter Hematology and Maligna nt neoplasm of Oncology at [facility] ovary, [place] [address] Social History Tobacco Use Types Packs/Day [...] Diagnosis Comme nts CANCER ANTIGEN 125 Routine 01/02/2018 11:09 AM Malignant neopl asm Results for this EDT of ovary, procedure are i n unspecified the results laterality section. documented in this encounter Results Cancer Antigen 125 (01/02/2018 11:09 AM EDT) P athologist Signature CA 125 9.6 <=38.1 [facility] unit/mL [facility] Comment: CA 125 Reference Interval ??Postmenopausal: 6.2 to 31.5 U/mL. ??Premenopausal: 6.9 to 45.9 U/mL. ??Pre and Postmenopausal subjects combi francois: 6.4 to 38.1 U/mL. Specimen Anatomical Collection Method Collection Time Receive d Time (Source) Location / / Volume Laterality Blood specimen 01/02/2018 11:09 8 (specimen) AM EDT 11:45 AM EDT Resulting Agency Comment Spec In Lab Christie Masters APRN CHEMISTRY ORDERABLES Performing Organization Address City/State/[place] [address] documented in this encounter Visit Diagnoses Diagnosis Malignant neoplasm of ovary, unspecified laterality documented in this encounter Care Teams Start Up Specialist Relationship Specialty Start Date End Date Courtney Malone APRN PCP - General Family Medicine 01/02/18 [address] [place] [address] documented as of this encounter
--- OUTSIDE RECORDS SUMMARY | 2022-01-25 00:31 | XMS_ITS | Encounter Summary ---
:1960 Author Organization [facility] [place] [address] Care Team Providers Name Role Phone Courtney Malone APRN Primary Care Provider Reason for Visit Reason Comments Follow-up 1 year Encounter Details Date Type Department Care Team Description 01/11/2019 Office Visit Gynecology Oncology Christie Masters ignant neoplasm of ovary, unspecified laterality; at [facility], AERIAL SPRAYER Tobacco dependence due to cigarettes [facility] [address] [place] [phone] Social History Tobacco Use Types Packs/Day Years [...] 17 01/11/2019 1:33 PM EDT Oxygen Saturation - - Inhaled Oxygen Concentration - - Weight 86.8 kg (191 lb 5.8 oz) 01/11/2019 1:33 PM EDT Height 162 cm (5' 3.78) 01/11/2019 1:33 PM EDT Body Mass Index 33.07 01/11/2019 1:33 PM EDT documented in this encounter Progress Notes Christie Masters, AERIAL SPRAYER - 01/11/2019 1:30 PM EDT Division [place] [address] Reason For Visit: Annual SUSPECT ARTIST exam/ Post Treatment Surveillance Exam History of Present Illness: Desiree Ching is a 58 y.o. 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 She has a hx of stage IIC, grade I ovarian cancer she is s/p exploratory laparotomy, total abdominal hysterectomy, bilateral salpingo-oophorectomy, appendectomy, omentectomy and staging biopsies on January 04, [address] Olea. She completed 3 cycles of carboplatin and paclitaxel chemotherapy per GOG 175 in February 2003. Her disease is followed by CA 125. Interim Health: Feeling fine. S/p fall this past winter, injured her R shoulder. She had an MRI which showed rotator cuff tear and is scheduled for orthopedic visit in 01/2019. She is working with her PCP to get her blood pressure under better control, otherwise no new medical issues, surgeries or hospitalizations. No SUSPECT ARTIST concerns/complaints ROS: No Pelvic/abdominal pain or bloating No Bowel/bladder concerns or changes. Multiple BM daily tend to be loose, worse with the heat and her metformin. Working with her PCP to find medication to replace metformin Energy level is low with the heat, but overall ok.. No Vaginal bleeding or discharge Mild occasional lower extremity edema- no changes, better with elevation. Appetite is overall fine Weight is up 5 lbs No SOB, cough or chest pain Occasional headache. No dizziness. Sexual function: sexually active without problems. Health Habits: Tobacco: < 1 PPD, not ready to quit yet. Trying to cut back. . ETOH: none Exercise: Nothing formal. . Health Maintenance: Mammogram 12/2017, scheduled for next week at [facility]. Colonoscopy: Fall 2013, repeat 10 years Social History: Lives with her and their 18 yo grandson who graduated from High school and is working at [employer]. They live next door to her daughter and her family. 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 Patient Active Problem List Diagnosis Code ??? Ovarian cancer C56.9 ??? Hypertension I10 ??? Obesity E66.9 ??? History of tobacco use Z87.891 ??? Diabetes mellitus type 2 in obese E11.69, E66.9 Past Surgical History: Procedure Laterality Date ??? CHOLECYSTECTOMY ??? DILATION AND CURETTAGE OF UTERUS ??? FOOT SURGERY ??? HYSTERECTOMY ??? SALPINGO-OOPHORECTOMY No Known Allergies Current Outpatient Medications on File Prior to Visit Medication Sig Dispense Refill ??? Miscellaneous Medical Supply Misc by [facility]Non-Drug; Combo Route) route. ??? glipiZIDE (GLUCOTROL) 5 mg Tablet Take 5 mg by mouth 2 times daily (before meals). 5 mg in am, 5mg in pm 0 ??? metFORMIN (GLUCOPHAGE) 500 mg tablet Take 500 mg by mouth 2 times daily (with meals). ??? lisinopril (ZESTRIL) 10 mg tablet ??? lovastatin (MEVACOR) 20 mg tablet ??? SHINGRIX, PF, 50 mcg/0.5 mL Suspension for Reconstitution injection inject 0.5 milliliter intramuscularly 0 ??? [DISCONTINUED] aspirin 81 mg EC tablet (Patient not taking: No sig reported) No current facility-administered medications on file prior to visit. Vital Signs: BP (!) 154/111 Pulse (!) 101 Temp 36.1 ??C (97 ??F) (Temporal) Resp 17 Ht 162 cm (5' 3.78) Wt 86.8 kg (191 lb 5.8 oz) BMI 33.07 kg/m?? PHYSICAL EXAM: Gen: Pleasant, NAD, Alert, appears well. HEENT: No clavicular adenopathy or thyromegaly Lungs: clear to auscultation Cor: heart RRR without appreciable murmurs. Abdomen:+BS, soft, not distended, Non- tender, no masses palpable, no appreciable inguinal [...] or tenderness. ASSESSMENT/PLAN: Desiree Ching is a 58 y.o. woman who is post treatment of stage IIC, grade I ovarian cancer. She has no evidence of recurrent disease. We reviewed signs and symptoms of recurrent disease. Will check CA 125 today and f/u with patient re: results. She will RTC in 1 year, sooner prn with questions/concerns. Approx 5 minutes time was spent in discussion re: patient's tobacco use: encouraged smoking cessation. She understands rationale for quitting smoking. Options for quitting were explored. She is not ready to quit yet, but is trying to cut back. She will RTC for additional support/treatment should she desire to quit/cut back. Elevated BP: She has been working with her PCP to get her BP under better control. Asymptomatic, reviewed s/sx to go to ED. She will f/u with her PCP Christie Masters APRN documented in this encounter Plan of Treatment Not on filedocumented as of this encounter Results Cancer Antigen 125 (01/11/2019 2:21 PM EDT) P athologist Signature CA [address] 8.[address] [facility] unit/mL [facility] Comment: CA 125 Reference Interval ??Postmenopausal: [...] Organization Address City/State/[place] [address] documented in this encounter Visit Diagnoses Diagnosis Malignant neoplasm of ovary, unspecified laterality Tobacco dependence due to cigarettes documented in this encounter Care Teams Leaflet Or Newspaper Deliverer Relationship Specialty Start Date End Date Courtney Malone APRN PCP - General Family Medicine 01/02/[address] [place] [address] documented as of this encounter
--- OUTSIDE RECORDS SUMMARY | 2022-01-25 00:31 | XMS_ITS | Encounter Summary ---
:1960 Author Organization [facility] [place] [address] Care Team Providers Name Role Phone Courtney Malone APRN Primary Care Provider Reason for Visit Reason Comments Annual Exam Encounter Details Date Type Department Care Team Description 01/02/2018 Office Visit Gynecology Oncology Christie aMsters ignant [place] [facility] [place], MATERIAL CONTROLLER ovary, unspecified [facility] [address], [place], [place] [id number] [phone] Social History Tobacco Use Types Packs/Day Years [...] Sign Reading Time Taken Comments Blood Pressure 151/95 01/02/2018 10:13 AM EDT Pulse 96 01/02/2018 10:13 AM EDT Temperature - - Respiratory Rate 20 01/02/2018 10:13 AM EDT Oxygen Saturation 97% 01/02/2018 10:13 AM EDT Inhaled Oxygen Concentration - - Weight 84.7 kg (186 lb 11.7 oz) 01/02/2018 10:13 AM EDT Height 162 cm (5' 3.78) 01/02/2018 10:13 AM EDT Body Mass Index 32.27 01/02/2018 10:13 AM EDT documented in this encounter Progress Notes Christie Masters, MATERIAL CONTROLLER - 01/02/2018 11:00 AM EDT Division [place] [address] Reason For Visit: Annual CARDIAC MONITOR TECHNICIAN exam/ Post Treatment Surveillance Exam History of Present Illness: Desiree Ching is a 57 y.o. 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 She has a hx of stage IIC, grade I ovarian cancer she is s/p exploratory laparotomy, total abdominal hysterectomy, bilateral salpingo-oophorectomy, appendectomy, omentectomy and staging biopsies on January 04, [address] Olea. She completed 3 cycles of carboplatin and paclitaxel chemotherapy per GOG 175 in February 2003. Her disease is followed by CA 125. Interim Health: Feeling fine. No new medical issues, surgeries or hospitalizations. No CARDIAC MONITOR TECHNICIAN concerns/complaints ROS: No Pelvic/abdominal pain or bloating No Bowel/bladder concerns or changes. Multiple BM daily, up to 5 x day, tend to be loose, worse withthe heat and her metformin. Energy level is fine No Vaginal bleeding or discharge Mild occasional lower extremity edema- no changes, better with elevation. Appetite is overall fine Weight is down 5 lbs, eating less No SOB, cough or chest pain No headache or dizziness. Sexual function: sexually active with occasional dryness and with decrease frequency and desire. Advanced directives: Desiree Ching does not have any advance directives on file. She does have the completed forms at home and has been asked to bring a copy of her completed advance directives to hernext visit so that it may be scanned into our electronic medical record. Health Habits: Tobacco: < 1 PPD, she has a plan with her PCP and plans to start Chantix. . ETOH: none Exercise: Nothing formal. . Health Maintenance: Mammogram:done this [facility] at [facility], results pending. Colonoscopy: Fall 2013, repeat 10 years Social History: Lives with her and their 17 yo grandson. They live next door to her daughterand her family. 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 SALPINGO-OOPHORECTOMY No Known Allergies Current Outpatient Prescriptions on File Prior to Visit Medication Sig Dispense Refill ??? glipiZIDE (GLUCOTROL) 5 mg Tablet Take [...] prior to visit. Vital Signs: BP (!) 151/95 (Patient Position: Sitting) Pulse 96 Resp 20 Ht 162 cm (5' 3.78) Wt 84.7 kg (186 lb 11.7 oz) SpO2 97% BMI 32.27 kg/m2 PHYSICAL EXAM: Gen: Pleasant, NAD, Alert, [...] or tenderness. ASSESSMENT/PLAN: Desiree Ching is a 57 y.o. woman who is post treatment of stage IIC, grade I ovarian cancer. She has no evidence of recurrent disease. We reviewed signs and symptoms of recurrent disease. Will check CA 125 today and f/u with patient re: results. She will RTC in 1 year, sooner prn with questions/concerns. Discussed patient's smoking. She would like to quit and does have a plan to quit. She is working with her PCP and plans to start Chantix before she goes back to work. Offered additional support PRN. Elevated BP: She has been working with her PCP to get her BP under better control. She is checking her BP daily, which continues to be elevated, she will f/u with her PCP as scheduled. Christie Masters APRN documented in this encounter Plan of Treatment Not on filedocumented as of this encounter Results Cancer Antigen 125 (01/02/2018 11:09 AM EDT) athologist Signature CA 125 9.6 <=38.1 [facility] unit/mL [facility] Comment: CA 125 Reference [...] Organization Address City/State/ZIP [place] [address] documented in this encounter Visit Diagnoses Diagnosis Malignant neoplasm of ovary, unspecified laterality documented in this encounter Care Teams Test Pilot Relationship Specialty Start Date End Date Courtney Malone APRN PCP - General Family Medicine 01/02/[address] [place] [address] documented as of this encounter
--- OUTSIDE RECORDS SUMMARY | 2022-01-25 00:31 | XMS_ITS | Encounter Summary ---
:1960 Author Organization [facility] [place] [address] Care Team Providers Name Role Phone Damion Morocho MD Primary Care Provider Reason for Visit Reason Comments Ovarian Cancer CA125/6 MONTH CHECK Encounter Details Date Type Department Care Team Description 11/12/2010 Hospital Encounter Gynecology Oncology Cathleen Daniel Ovarian cancer; at [facility] MD Antonia History of tobacco use [facility] [address] [place] [id number] ONCOLOGY [phone] [place] [address] Social History Tobacco Use Types Packs/Day Years Used Date Former Smoker Smokeless Tobacco: Never Used Alcohol Use Standard Drinks/Week Comments No 0 (1 standard drink = 0.6 oz pure alcoho l) Sex Assigned at Date Recorded Not on file documented as of this encounter Last Filed Vital Signs Vital Sign Reading Time Taken Comments Blood Pressure 138/80 11/12/2010 9:21 AM EDT Pulse - - Temperature - - Respiratory Rate - - Oxygen Saturation - - Inhaled Oxygen Concentration - - Weight 98 kg (216 lb) 11/12/2010 9:21 AM EDT Height - - Body Mass Index - - documented in this encounter Medications at Time of Discharge Medication Sig Dispensed Refills Start Date End Date lisinopril (ZESTRIL) 10 mg Take 40 mg by mouth 0 04/11/2010 tablet daily. lovastatin (MEVACOR) 40 mg Take 40 mg by mouth 0 04/11/2010 Tablet nightly. multivitamin (THERAGRAN) 0 04/11/2010 07/30/2016 tablet aspirin 81 mg EC tablet 0 04/11/2010 0 01/11/2019 metFORMIN (GLUCOPHAGE) 500 0 0 09/09/2012 mg tablet buPROPion (WELLBUTRIN XL) 0 04/11/2010 09/09/2012 150 mg 24 hr tablet documented as of this encounter Progress Notes Cathleen Daniel MD - 11/16/2010 9:44 AM EDT Subjective: Patient ID: Desiree Ching is a 49 y.o. female here for surveillance exam. Patient Active Problem List Diagnoses ??? Ovarian [...] ??? Diabetes mellitus type 2 in obese HPI Comments: History of Present Illness: Desiree returns today for surveillance exam. She is feelingwell. Since she was last here Desiree has gained almost 20 pounds, again. She had lost weight in the interim, but reagained and then some. She has not been exercising. She has no other complaints. Desiree has no new complaints to suggest recurrent disease. She has no change in bladder function, no abd/pelvic pain/bloating/cramping. CA 125 to be drawn today. They have been <15. Prior to Admission medications Medication Sig Start Date End Date Taking? Authorizing Provider multivitamin (THERAGRAN) tablet 04/11/10 Yes lisinopril (ZESTRIL) 10 mg tablet 04/11/10 Yes aspirin 81 mg EC tablet 04/11/10 Yes metFORMIN (GLUCOPHAGE) 500 mg tablet 04/11/10 Yes lovastatin (MEVACOR) 20 mg tablet 04/11/10 Yes buPROPion (WELLBUTRIN XL) 150 mg 24 hr tablet 04/11/10 Yes No Known Allergies Review of Systems: otherwise negative Filed Vitals: 11/12/10 0921 BP: 138/80 Weight: 97.977 kg (216 lb) Objective: Physical Exam: Gen: Desiree appears well, in NAD, obese. HEENT: no adenopathy or thyromegaly. Lungs clear Heart RRR Abdomen obese, soft, non-tender, no obvious abnormal mass, organomegaly or ascites. Extremities: no edema. DTRs normal, sensation normal Pelvic exam: no abnormal masses or nodularity. Assessment and Plan: No evidence of recurrent disease. CA-125 to be drawn today. Return in 6 months. documented in this encounter Plan of Treatment Not on filedocumented as of this encounter Procedures Procedure Name Priority Date/Time Associated Diagnosis Comme nts CANCER ANTIGEN 125 Routine 11/12/2010 10:43 AM Ovarian cancer Results for this EDT procedure are i n the results section. documented in this encounter Results CA 125 (11/12/2010 10:43 AM EDT) athologist Signature CA 125 8 <=20 u/ml [facility] Comment: Beginning 04/25/08 the CA125 assay will [...] any questions, please contact the lab at [phone]. Specimen Anatomical Collection Method Collection Time Receive d Time (Source) Location / / Volume Laterality Blood specimen 11/12/2010 10:43 1 2:09 (specimen) AM EDT PM EDT Cathleen Daniel MD CHEMISTRY ORDERABLES Performing Organization Address City/State/[place] [address] [facility] documented in this encounter Visit Diagnoses Diagnosis Ovarian cancer Malignant neoplasm of ovary History of tobacco use Personal history of tobacco use, present ing hazards to health documented in this encounter Care Teams Tool Salvage Worker Relationship Specialty Start Date End Date Damion Morocho MD PCP - General 04/17/10 09/12/[address] [place] [address] documented as of this encounter
--- OUTSIDE RECORDS SUMMARY | 2022-01-25 00:31 | XMS_ITS | Encounter Summary ---
:1960 Author Organization [place] [address] Care Team Providers Name Role Phone Courtney Malone APRN Primary Care Provider Reason for Visit Reason Comments Patient Education Encounter Details Date Type Department Care Team Description 10/30/2021 Specialty Pharmacy [place] [facility] [place] [address] Social History Tobacco Use Types Packs/Day Years Used Date Current Every Day Smoker Cigarettes 0.5 20 Smokeless Tobacco: Never Used Comments: had quit for 2 years in 2009 Alcohol Use Standard Drinks/Week Comments No 0 (1 standard drink = 0.6 oz pure alcoho l) Sex Assigned at Date Recorded Not on file documented as of this encounter Progress Notes Jonathan Sky [facility] - 10/30/2021 2:47 PM EDT Specialty Pharmacy Consultation; Jonathan Sky [facility] Comprehensive Medication Management (CMM) Desiree Ching Diagnosis: Psoriasis Therapy Start Date: TBD - New Start Contact in person or via telephone: In Person Ms. Desiree Ching is a 60 y.o. (1960) female who was contacted in regard to specialty medication. Spoke with patient regarding Stelara. A review of the medication therapy was performed. Is the patient willing to proceed with the Clinical Assessment? Yes Summary and Recommendations: ??? Comprehensive review of Stelara discussed with the patient. Topics covered include: warnings/precautions & contraindications, patient's dose and frequency of administration, personal indicationfor use, potential adverse effects, drug &/or food interactions, monitoring/safety parameters, drug MOA, proper storage/handling recommendations, and anticipated time to effect o Education provided on the importance of infection prevention o Dose hold parameters were reviewed and patient agrees to contact the clinic if any suspected/knowninfection, antibiotic treatment, or planned surgeries occur ? ? Medication & allergy reconciliation completed ??? Patient made aware of the prior authorization process/timeline and was given [facility] contact information if needed. ??? General overview of self-injection process was provided and patient was encouraged to schedule an injection teaching appointment (in-person or telehealth) if they prefer to have first injection completed with medical oversight ??? Briefly discussed Otezla as alternative option based on insurance coverage Clinic follow-up needed: yes - Follow up visits and lab monitoring Allergies and Drug intolerance: No Known Allergies Problem List: Patient Active Problem List Diagnosis Code ??? Ovarian cancer C56.9 ??? Hypertension I10 ??? Obesity E66.9 ??? Tobacco dependence due to cigarettes F17.210 ??? Diabetes mellitus type 2 in obese E11.69, E66.9 Special Dietary or Hydration Requirements: no Medication Reconciliation Discrepancies (compared to [facility] med list) - Chlorthalidone 25mg qd - Lovastatin 40mg qd - Lisinopril 40mg qd - Glipizide Medication List: Current Outpatient Medications Medication Sig Dispense Refill ??? betamethasone dipropionate (Diprolene) 0.05 % Cream APPLY TOPICALLY DAILY NEEDED FOR SKIN IRRITATION ??? triamcinolone (Kenalog) 0.1 % Cream APPLY EXTERNALLY TO THE AFFECTED AREA TWICE DAILY ??? insulin glargine (Lantus;Semglee) 100 unit/mL Solution Inject 22 Units subcutaneously nightly. ??? SHINGRIX, PF, 50 mcg/0.5 mL Suspension for Reconstitution injection inject 0.5 milliliter intramuscularly 0 ??? Miscellaneous Medical Supply Misc by [facility]Non-Drug; Combo Route) route. ??? glipiZIDE (Glucotrol) 10 mg Tablet Take 10 mg by mouth 2 times daily (before meals). 0 ??? lisinopril (ZESTRIL) 10 mg tablet Take 40 mg by mouth daily. ??? lovastatin (MEVACOR) 40 mg Tablet Take 40 mg by mouth nightly. No current facility-administered medications for this visit. Most Recent Vitals: Ht Readings from Last 1 Encounters: 01/11/19 162 cm (5' 3.78) Wt Readings from Last 3 Encounters: 01/11/19 86.8 kg (191 lb 5.8 oz) 01/02/18 84.7 kg (186 lb 11.7 oz) 07/30/16 87 kg (191 lb 12.8 oz) Temp Readings from Last 3 Encounters: 01/11/19 36.1 ??C (97 ??F) (Temporal) 07/30/16 37.2 ??C (99 ??F) (Oral) 09/13/14 36.7 ??C (98.1 ??F) (Oral) BP Readings from Last 3 Encounters: 01/11/19 (!) 171/103 01/02/18 (!) 151/95 07/30/16 149/78 Pulse Readings from Last 3 Encounters: 01/11/19 (!) 101 01/02/18 96 07/30/16 117 There is no height or weight on file to calculate BMI. Pertinent Lab values: No results found for: ALT, AST, GGT, ALKPHOS, BILITOT, BILIDIR, ALBUMIN, PROT No results found for: WBC, HGB, HCT, MCV, PLATELET No results found for: HA1C Immunization History Administered Date(s) Administered ??? Td, adult 06/23/1995, 06/20/2005 Assessment and Recommendations: Patient Counseling Patient informed of specialty services: Yes Patient accepted offer to certified travel counselor: select all, adherence/missed doses, cost of medications/cost implications, doses and administration, possible drug/OTC drug and food interactions, possible adverse side effects and management, pharmacy contact information, lab monitoring/follow up, possible drug/Rx drug interactions, safe handling, storage, and disposal, therapeutic rationale Medication Management Summary Topics discussed: reviewed medication changes since last visit, medication safety precautions education provided, drug interaction education provided to patient, safe handling, storage, and disposal discussed, possible adverse effects and management discussed, lab monitoring and follow-up discussed, cost of medications and cost implications discussed, adherence and missed doses discussed, health goals discussed, monitoring medication discussed, preventative care discussed, self-monitoring discussed, start medication discussed, timing of medications discussed, referral needs discussed Treatment Outcomes 10/30/2021 8242 Disease progression: Stable Patient Overall Status: Stable Reviewed in detail with patient: Dose appropriateness based on recommended standard dosing Current medication list including OTC medications Medication and disease problems Allergies Comorbid conditions/ Problem List Past adverse events if any Special needs of the patient including physical and cognitive limitations Goals of therapy and management strategies Warnings, precautions, and contraindications Side effects Drug-drug and drug-food interactions Administration instructions including dose, frequency and method Handling, storage, and disposal Verifying expiration dates on products before use Rotating medication inventory to use oldest product first Relevant lab data Treatments impact on disease Dose appropriateness based on recommended standard dosing schedule, including any variations from FDA approved dosing Patient verbalizes understanding and is able to read-back instructions on self-administration/injection, proper storage, drug stability, importance of adherence and management strategies, side effect avoidance and mitigation strategies, and interruptions in therapy: Yes Patient is aware a licensed pharmacist is available 24 hours a day, 7 days a week to discuss medication-related questions or concerns: Yes Patient verbalizes understanding of the common side effect profile of their medication. The patient is able to call 911 or seek urgent care if signs/symptoms of allergy or harmful adverse reactions occur: Yes Additional care/services needed: No Additional equipment/supplies required: No Patient satisfied with care/services provided: Yes Specialty Assessment: Physical and Cognitive Assessment: Functional limitations identified: No Cognitive limitations identified: No Concern regarding orientation/memory: No Concern with reasoning/judgement: No Is patient a fall risk: No Social Assessment: Does patient have a primary body care manager: No Does patient have an emergency contact on file: Yes Does patient need referral to social studies department chair: No Does patient need referral to advocacy group: No Home Health Assessment: Is the patient in a safe home environment?: Yes Is the patient able to store their medication as directed?: Yes Does the patient have a support network at home?: Yes Reviewed potential home safety hazards with patient: Yes Economic Assessment: Patient is agreeable to medication copay: Other (see comments) (Comment: TBD - New Start) Welcome Packet and Rights and Responsibilities: Patient provided welcome packet/rights and responsibilities: No Specialty Med Adherence Patient Demonstrates Understanding of Importance of Adherence: Yes Educational Information or Adherence Tools Provided: Yes Therapy Assessment: Current Medication Dosing/Route/Frequency: Stelara 45mg/0.5mL Inject the contents of one syringe (45mg) under the skin once at weeks 0 and 4, and then once every 12 weeks thereafter Appropriate Therapy: Yes Current Affected Areas: Bilateral legs, right arm, fingernails Total BSA involved: 10% Recent Skin Exacerbations/Flaring: yes - Has been itchy and painful Recent Topical Corticosteroid Use: yes - Triamcinolone and Betamethasone Relapsing/Remitting Factors: no Diagnosis of Psoriatic Arthritis: No Patient's Problems/Needs: Ongoing clinic follow up and lab monitoring Expected Outcome: Improvement in symptoms and decrease in BSA Patient's goals: Patient's specific desired goal: Improvement in symptoms and decrease in affected area Measured by: BSA and follow up assessment Time-frame to meet goal: 6 months Monitoring requirements for prescribed medication: CBC, CMP, Hep B, Hep C, TB, skin exam Care Plan Reviewed and Approved by both Pharmacist and Patient: Yes Interventions (if applicable): No N/A Pharmacist follow-up needed: Yes Patient understands no changes to current drug regimen were made at the appointment and that [facility] is providing recommendations (summary located at top of note) for provider review and follow up. Jonathan Sky RPH 10/30/21 2:53 PM Electronically signed by Jonathan Sky [facility] at 10/31/2021 4:04 PM EDT documented in this encounter Plan of Treatment Not on filedocumented as of this encounter Visit Diagnoses Not on filedocumented in this encounter Care Teams Electrical Controls Technician Relationship Specialty Start Date End Date Courtney Malone APRN PCP - General Family Medicine 01/02/[address] [place] [address] documented as of this encounter
--- OUTSIDE RECORDS SUMMARY | 2022-01-25 00:31 | XMS_ITS | Encounter Summary ---
:1960 Author Organization [facility] Address [address] [place] [address] Care Team Providers Name Role Phone Orly Mari MD Primary Care Provider Reason for Visit Reason Comments Established annual Encounter Details Date Type Department Care Team Description 09/07/2013 Follow-Up Gynecology Oncology at Cathleen Daniel, Ovarian cancer, [facility] MD unspecified laterality Formerly [facility], [facility] (Pr imary Dx) [place] [address] GYNECOLOGY ONCOLOGY [phone] [place] [address] (Wo rk) Social History Tobacco Use Types [...] Sign Reading Time Taken Comments Blood Pressure 142/98 09/07/2013 12:54 PM EDT Pulse - - Temperature - - Respiratory Rate - - Oxygen Saturation - - Inhaled Oxygen Concentration - - Weight 84.7 kg (186 lb 11.7 oz) 09/07/2013 12:54 PM EDT Height 162 cm (5' 3.78) 09/07/2013 12:54 PM EDT Body Mass Index 32.27 09/07/2013 12:54 PM EDT documented in this encounter Progress Notes Samantha Rios MD - 09/07/2013 12:54 PM EDT Follow Up Visit Reason for Visit: Surveillance exam, history of ovarian cancer. Patient Active Problem List Diagnosis ??? Ovarian cancer Stage IIC, grade I [...] is feeling well. She has no complaints. The patient had an elevated A1c recently and has tried to make some lifestyle changes including her diet. Because of this bowel movements havebecome more firm and have changed, but denies rectal bleeding or rectal pressure. She specifically denies any new abdominal or pelvic pain/pressure, vaginal bleeding, changes in her bowel or bladder. Her appetite has been very good. Does not exercise regularly. She has had a colonoscopy and mammogram recently which were both normal. ROS: As above. Current Outpatient Prescriptions on File Prior to Visit Medication Sig Dispense Refill ??? metFORMIN (GLUCOPHAGE) 500 mg tablet Take 500 mg by mouth 2 times daily (with meals). ??? multivitamin (THERAGRAN) tablet ??? lisinopril (ZESTRIL) 10 mg tablet ??? aspirin 81 mg EC tablet ??? lovastatin (MEVACOR) 20 mg tablet Allergies Allergies Allergen Reactions ??? No Known Allergies Exam Filed Vitals: 09/07/13 1254 BP: 142/98 General: Well appering woman. Neck: no cervical, supraclavicular or axillary adenopathy. Abdomen: Well healed scars. Nontender. Easily reducible ventral hernia. No other masses. Breasts: No discrete masses. No skin changes. Pelvic: Normal external genitalia. On bimanual exam the vagina is smooth and without masses or nodularity. The cuff is intact and there are no pelvic masses palpable. There is some scar tissue at the top of the cuff near the midline. Extremity: No lower extremity edema or calf tenderness bilaterally. Results for DESIREE CHING ( ) as of 09/07/2013 12:55 Ref. Range 04/11/2010 15:27 11/12/2010 10:43 09/13/2011 09:45 09/09/2012 15:34 CA 125 Latest Range: <=20 u/ml 7 8 6 7 Assessment: 52 y.o. woman with a history of IIC ovarian cancer s/p surgery and 3 cycles of adjuvant chemotherapy in 2002. She is 10 years since treatment without evidence of recurrent disease. Plan: Check Ca-125 today. F/up 1 year. I saw and evaluated the patient with Dr. Rios, and I confirmed the history and physical findingsas outlined, and I agree with the note as written. documented in this encounter Plan of Treatment Not on filedocumented as of this encounter Procedures Procedure Name Priority Date/Time Associated Diagnosis Comme nts CANCER ANTIGEN 125 Routine 09/07/2013 2:24 PM Ovarian cancer, Results for this EDT unspecified procedure are i n laterality the results section. documented in this encounter Results Cancer Antigen 125 (09/07/2013 2:24 PM EDT) P athologist Signature CA 125 8.7 <=35.0 CERNER unit/mL MILLENNIUM Specimen Anatomical Collection Method Collection Time Receive d Time (Source) Location / / Volume Laterality Blood specimen 09/07/2013 2:24 PM 014 2:32 (specimen) EDT PM EDT Resulting Agency Comment Spec In Lab Cathleen Daniel MD CHEMISTRY ORDERABLES Performing Organization Address City/State/[place] [address] CERNER MILLENNIUM documented in this encounter Visit Diagnoses Diagnosis Ovarian cancer, unspecified laterality - Primary documented in this encounter Care Teams Education Program Specialist Relationship Specialty Start Date End Date Orly Mari MD PCP - General 09/09/12 09/12/14 [address] [place] [address] documented as of this encounter
--- OUTSIDE RECORDS SUMMARY | 2022-01-25 00:31 | XMS_ITS | Encounter Summary ---
:1960 Author Organization [facility] [address] Care Team Providers Name Role Phone Courtney Malone APRN Primary Care Provider Encounter Details Date Type Department Care Team Description 10/30/2021 Hospital Encounter [place] [place] [facility] Bryce Trujillo MD Psoriasis [address] [place] [id number] [facility] [place], [place] [address] (Wo rk) Social History Tobacco [...] Sig Dispensed Refills Start Date End Date chlorthalidone Take 25 mg by mouth 0 (Hygroten) 25 mg Tablet daily. betamethasone APPLY TOPICALLY DAILY 0 08/14/19 22 dipropionate NEEDED FOR SKIN (Diprolene) 0.05 % IRRITATION Cream triamcinolone (Kenalog) APPLY EXTERNALLY TO THE 0 05/30/2021 0.1 % Cream AFFECTED AREA TWICE DAILY insulin glargine Inject 22 Units 0 (Lantus;Semglee) 100 subcutaneously nightly. unit/mL Solution ustekinumab (Stelara) Inject the contents of 0.5 mL 3 45 mg/0.5 mL one syringe (45 mg) subcutaneous injection under the skin once at weeks 0 and 4, and then once every 12 weeks thereafter SHINGRTIMO, PF, 50 inject 0.5 milliliter 0 01/02/20 19 mcg/0.5 mL Suspension intramuscularly for Reconstitution injection Miscellaneous Medical by [facility].(Non-Drug; Combo 0 Supply Misc Route) route. glipiZIDE (Glucotrol) Take 10 mg by mouth 2 0 10/2016 10 mg Tablet times daily (before meals). lisinopril (ZESTRIL) 10 Take 40 mg by mouth 0 mg tablet daily. lovastatin (MEVACOR) 40 Take 40 mg by mouth 0 mg Tablet nightly. documented as of this encounter Plan of Treatment Not on filedocumented as of this encounter Procedures Procedure Name Priority Date/Time Associated Diagnosis Comme nts XR HAND MIN 3 VIEWS Routine 10/30/2021 [...] who have questions please contact the health director of home care hospice that requested your imaging first. ? Electronically signed by: Alesia Johnson MD, [facility] ([phone]), at 10/30/2021 4:09 PM Narrative 10/30/2021 4:09 PM EDT EXAMINATION: XR HAND MIN 3 VIEWS BILAT (GENERIC) CLINICAL HISTORY: psoriatic arthrirtis - patient with psoriasis and morning stiffness in hands, , entered by [employer] service TECHNIQUE: Bilateral hands, 4 views each [...] morning stiffness in hands, , entered by [employer] service TECHNIQUE: Bilateral hands, 4 views each [...] ho have questions please contact the health director of home care hospice that requested your imaging first. Electronically signed by: Alesia Johnson MD, Radiology [place] ([phone]), at 10/30/2021 4:09 PM Bryce Trujillo MD IMG DX ORDERABLES documented in this encounter Visit Diagnoses Diagnosis Psoriasis Other psoriasis documented in this encounter Care Teams Building Construction Inspector Relationship Specialty Start Date End Date Courtney Malone APRN PCP - General Family Medicine 01/02/[address] [place] [address] documented as of this encounter
--- OUTSIDE RECORDS SUMMARY | 2022-01-25 00:31 | XMS_ITS | Encounter Summary ---
:1960 Author Organization [facility] [place] [address] Care Team Providers Name Role Phone Unknown Primary Care Provider Unavailable Reason for Visit Reason Comments Established annual Encounter Details Date Type Department Care Team Description 09/13/2014 Follow-Up Gynecology Oncology at Christie Masters Ovarian cancer, [facility], [employer] INST[employer]ER unspecified laterality [facility] [place] [address] [place] [address] [phone] (Wo rk) Social History Tobacco Use Types [...] Sign Reading Time Taken Comments Blood Pressure 136/84 09/13/2014 2:17 PM EDT Pulse 112 09/13/2014 2:17 PM EDT Temperature 36.7 ??C (98.1 ??F) 09/13/2014 2:17 PM EDT Respiratory Rate 20 09/13/2014 2:17 PM EDT Oxygen Saturation 96% 09/13/2014 2:17 PM EDT Inhaled Oxygen Concentration - - Weight 87 kg (191 lb 12.8 oz) 09/13/2014 2:17 PM EDT Height 163.4 cm (5' 4.33) 09/13/2014 2:17 PM EDT Body Mass Index 32.58 09/13/2014 2:17 PM EDT documented in this encounter Progress Notes Christie Masters, POWER PL[employer] INST[employer]ER - 09/13/2014 2:25 PM EDT Division [place] [address] Reason For Visit: Post Treatment Surveillance Exam History of Present Illness: Desiree Ching is a 53 y.o. woman who presents today for surveillance exam. She has a hx of stage IIC, grade I ovarian cancer she is s/p exploratory laparotomy, total abdominal hysterectomy, bilateral salpingo- oophorectomy, appendectomy, omentectomy and staging biopsies on January 04, [address] Olea. She completed 3 cycles of carboplatin and paclitaxel chemotherapy per GOG 175 in February 2003. Her disease is followed by CA 125. Interim Health: Feeling good. No new medical issues, surgeries or hospitalizations. She is working on getting her diabetes under better control. 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 ROS: No Pelvic/abdominal pain or bloating No Bowel/bladder concerns or changes. No Fatigue No Vaginal bleeding or discharge Hx of lower extremity edema- no changes, better with elevation. No reports of Wt. Loss Reports appetite is good No SOB, cough or chest pain Sexual function: sexually active with occasional dryness Health Habits: Tobacco: 1/2 PPD, would like to quit- working with PCP on smoking cessation. ETOH: none Exercise: Walking 5x week, 45 minutes in the nice weather. Health Maintenance: Mammogram: 05/18/14, normal per patient. Colonoscopy: Fall 2013, repeat 10 years Social History: Lives with her . They live next door to her daughter and her family. 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 Patient Active Problem List Diagnosis Code ??? Ovarian cancer 183.0 ??? Hypertension 401.9 ??? Obesity 278.00 ??? History of tobacco use V15.82 ??? Diabetes mellitus type 2 in obese 250.00, 278.00 Past Surgical History Procedure Laterality Date ??? Cholecystectomy ??? Hysterectomy ??? Dilation and curettage of uterus ??? Foot surgery ??? Salpingo-oophorectomy Allergies Allergen Reactions ??? No Known Allergies [...] file prior to visit. Vital Signs: BP 136/84 Pulse 112 Temp(Src) 36.7 ??C (98.1 ??F) (Oral) Resp 20 Ht 163.4 cm (5' 4.33) Wt 87 kg (191 lb 12.8 oz) BMI 32.58 kg/m2 SpO2 96% PHYSICAL EXAM: Gen: Pleasant, NAD, Alert, appears well. HEENT: No clavicular adenopathy or thyromegaly Lungs: clear to auscultation Cor: heart RRR without appreciable murmurs. Abdomen: soft, not distended, small umbilical hernia (per patient- has been present for years-asymptomatic), no organomegaly, not tender, no masses palpable, no appreciable [...] or tenderness. ASSESSMENT/PLAN: Desiree Ching is a 53 y.o. woman who is post treatment of stage IIC, grade I ovarian cancer . She has no evidence of recurrent disease. We reviewed signs and symptoms of recurrent disease. Will check CA 125 today and f/u with patient re: results. She will RTC in 1 year, sooner prn with questions/concerns. Vaginal dryness with intercourse: discussion re: positioning, communication with partner and using vaginal lubricant. Approx. 3-4 minutes time was spent discussing patient's smoking. Recommended she quit, as smoking decreases her overall projected longevity and increases her risk of many cancers, as well as cardiovascular disease and lung disease. She states understanding of this concept. Patient given tobacco cessation packet and encouraged to continue to f/u with her PCP. Christie Masters APRN documented in this encounter Plan of Treatment Not on filedocumented as of this encounter Procedures Procedure Name Priority Date/Time Associated Diagnosis Comme nts CANCER ANTIGEN 125 Routine 09/13/2014 3:22 PM Ovarian cancer, Results for this EDT unspecified procedure are i n laterality the results section. documented in this encounter Results Cancer Antigen 125 (09/13/2014 3:22 PM EDT) P athologist Signature CA 125 8.6 <=35.0 CERNER unit/mL MILLENNIUM Specimen Anatomical Collection Method Collection Time Receive d Time (Source) Location / / Volume Laterality Blood specimen 09/13/2014 3:22 PM 015 3:33 (specimen) EDT PM EDT Resulting Agency Comment Spec In Lab Cathleen Olea MD CHEMISTRY ORDERABLES Performing Organization Address City/State/ZIP Code Phon e Number [place] [phone] CERNER MILLENNIUM documented in this encounter Visit Diagnoses Diagnosis Ovarian cancer, unspecified laterality documented in this encounter Care Teams Branch Lending Officer Relationship Specialty Start Date End Date Unknown PCP - General 09/13/14 01/01/18 None documented as of this encounter
--- OUTSIDE RECORDS SUMMARY | 2022-01-25 00:31 | XMS_ITS | Encounter Summary ---
:1960 Author Organization [facility] [place] [address] Care Team Providers Name Role Phone Unavailable Primary Care Provider Unavailable Encounter Details Date Type Department Care Team Description 04/11/2010 Follow-Up Gynecology Oncology at [facility] Cathleen Olea MD [facility] [place] [phone] GYNECOLOGY ONCOLOGY [phone] [place], [place] [address] (Wo rk) Social History Tobacco Use Types Packs/Day Years Used Date Never Assessed Sex Assigned at Date Recorded Not on file documented as of this encounter Plan of Treatment Not on filedocumented as of this encounter Visit Diagnoses Not on filedocumented in this encounter
--- NOTE | 2022-01-25 08:30 | DI.MAMMO_ITS ---
Exam(s) MAMMO SCREENING EXAM: MAMMO SCREENING CLINICAL HISTORY: screening, Z12.39 TECHNIQUE: Mammograms were interpreted according to the usual protocol including computer analysis w [employer] CAD system, tomosynthesis and C-view imaging. COMPARISON: FINDINGS: The breasts are of moderate density with fairly symmetrical distribution of fibroglandular tissue. N o dominant mass or clumped microcalcification is identified in either breast. The current examinatio n is compared with previous examinations including January 2021 and there has been no gross interva l change in appearance in comparison with the prior studies. IMPRESSION: No specific evidence of malignancy at this time. Routine screening examinations are suggested at ye monik intervals in this age group according to the ACS ACR guidelines. BI-RADS Category 1 - Negative Breast Density - Category B - Scattered areas of fibroglandular density
== END ==
PROVIDERS: PCP Nurse Practitioner Family; Visit Provider Nurse Practitioner Family
DX: Z12.31 Encounter for screening mammogram for malignant neoplasm of breast (principal)
CPT/HCPCS: 77063; 77067

== ENCOUNTER 2022-09-20 10:48 | Outpatient (CLI) | payer OTHER, SELFPAY ==
[2022-09-20 12:39] LABS: Abs Immature Grans 0.06 10^3/uL (0.0-0.06); Absolute Basophil Count 0.07 10^3/uL (0.0-0.2); Absolute Eosinophil Count 0.25 10^3/uL (0.0-0.7); Absolute Lymphocyte Count 2.54 10^3/uL (1.2-3.4); Absolute Monocyte Count 0.48 10^3/uL (0.1-0.8); Absolute Neutrophil Count 4.55 10^3/uL (1.2-6.7); Basophils % 0.9; Eosinophils % 3.1; HGB 14.9 g/dL (11.2-15.7); Immature Grans % 0.8; Lymphocytes % 31.9; MCH 32.3 pg (27.0-33.0); MCHC 34.7 % (32.0-36.0); MCV 93 fL (80-95); MPV 9.4 fL (8.0-11.0); Neutrophils % 57.3; Platelet Count 214 10^3/uL (130-400); RBC 4.61 10^6/uL (3.93-5.22); RDW 13.1 % (11.7-14.6); RDW-SD 44.8 fL; WBC 7.95 10^3/uL (4.4-10.8)
[2022-09-20 12:56] LABS: ALT 49 U/L (14-59); AST 24 U/L (15-37); Albumin 3.6 g/dL (3.4-5.0); Alkaline Phosphatase 71 U/L (46-116); Anion Gap 7.4 mmol/L (3-11); BUN 20 mg/dL (7-18); Bilirubin, Total 0.5 mg/dL (0.2-1.0); CO2 31.6 mmol/L (21.0-32.0); CREATININE 1.1 mg/dL (0.55-1.02); Calcium 9.9 mg/dL (8.5-10.1); Calculated LDL 97 mg/dL (<100); Chloride 99 mmol/L (98-107); Cholesterol 172 mg/dL (<200); Estimated GFR 57.17 (mL/min/1.73m2); Glucose 152 mg/dL (74-106); HDL Cholesterol 45 mg/dL (40-60); Potassium 3.4 mmol/L (3.5-5.1); Sodium 138 mmol/L (136-145); Total Protein 7.4 g/dL (6.4-8.2); Triglyceride 151 mg/dL (<150)
[2022-09-20 14:16] LABS: COMMENT (LAB VIEW ONLY) 24.72 mg/dL
== END 2022-09-20 10:49 | disposition home or self-care (01) ==
LOC: LOS 10:49
PROVIDERS: PCP Nurse Practitioner Family; Referring Provider Nurse Practitioner Family; Visit Provider Nurse Practitioner Family
DX: E11.9 Type 2 diabetes mellitus without complications (principal); I10 Essential (primary) hypertension; L40.9 Psoriasis, unspecified
CPT/HCPCS: 36415; 80053; 80061; 82043; 82570; 85025

== ENCOUNTER 2024-04-05 15:26 | Outpatient (CLI) | payer SELFPAY ==
[2024-04-05 16:45] LABS: Abs Immature Grans 0.04 10^3/uL (0.0-0.06); Absolute Basophil Count 0.06 10^3/uL (0.0-0.2); Absolute Eosinophil Count 0.17 10^3/uL (0.0-0.7); Absolute Lymphocyte Count 2.74 10^3/uL (1.2-3.4); Absolute Monocyte Count 0.56 10^3/uL (0.1-0.8); Absolute Neutrophil Count 4.35 10^3/uL (1.2-6.7); Basophils % 0.8 %; Eosinophils % 2.1 %; HCT 42.6 % (36.0-46.0); HGB 14.8 g/dL (11.2-15.7); Immature Grans % 0.5 %; Lymphocytes % 34.6 %; MCH 32.5 pg (27.0-33.0); MCHC 34.7 % (32.0-36.0); MCV 93 fL (80-95); MPV 9.3 fL (8.0-11.0); Monocytes % 7.1 %; Neutrophils % 54.9 %; Platelet Count 207 10^3/uL (130-400); RBC 4.56 10^6/uL (3.93-5.22); RDW 12.8 % (11.7-14.6); WBC 7.92 10^3/uL (4.4-10.8)
[2024-04-05 17:46] LABS: ALT 43 U/L (14-59); AST 15 U/L (15-37); Albumin 3.5 g/dL (3.4-5.0); Alkaline Phosphatase 73 U/L (46-116); Anion Gap 9.7 mmol/L (3-11); BUN 21 mg/dL (7-18); Bilirubin, Total 0.47 mg/dL (0.2-1.0); CO2 29.3 mmol/L (21.0-32.0); CREATININE 1.4 mg/dL (0.55-1.02); Calcium 9.8 mg/dL (8.5-10.1); Chloride 101 mmol/L (98-107); Estimated GFR 42.27 (mL/min/1.73m2); Glucose 406 mg/dL (74-106); Potassium 4.3 mmol/L (3.5-5.1); Sodium 140 mmol/L (136-145); Total Protein 6.9 g/dL (6.4-8.2)
== END 2024-04-05 15:27 | disposition home or self-care (01) ==
LOC: LBO 15:26
PROVIDERS: PCP Nurse Practitioner Family; Referring Provider Nurse Practitioner Family; Visit Provider Nurse Practitioner Family
DX: E11.319 Type 2 diabetes mellitus with unspecified diabetic retinopathy without macular edema (principal); L40.9 Psoriasis, unspecified
CPT/HCPCS: 36415; 80053; 85025

== ENCOUNTER 2024-04-05 18:43 | Outpatient (REF) | payer SELFPAY ==
[2024-04-05 21:29] LABS: COMMENT (LAB VIEW ONLY) 54.98 mg/dL; Microalb ug/mg Crea 9.3 ug/mg Cr
== END 2024-04-05 18:44 | disposition home or self-care (01) ==
LOC: LBN 18:43
PROVIDERS: PCP Nurse Practitioner Family; Visit Provider Nurse Practitioner Family
DX: E11.9 Type 2 diabetes mellitus without complications (principal)
CPT/HCPCS: 82043; 82570

== ENCOUNTER 2024-11-10 01:55 | Outpatient (CLI) | payer SELFPAY ==
--- NOTE | 2024-11-10 09:15 | DI.MAMMO_ITS ---
Exam(s) MAMMO SCREENING EXAM: MAMMO SCREENING CLINICAL HISTORY: screening,Z12.39 TECHNIQUE: Bilateral full field digital CC and MLO mammographic images were obtained with 3D tomosynthesis and utilizing computer aided detection (CAD). COMPARISON: Comparison is made with prior examinations. FINDINGS: Masses/Architectural Distortion: No suspicious masses or areas of architectural distortion are present. There are stable nodules in each breast. Microcalcifications: No suspicious pleomorphic-type are seen. Skin Thickening/Nipple Retraction: None. IMPRESSION: 1. No significant interval change with no specific features of malignancy noted. 2. Unless there is more urgent need, screening mammography is recommended, as per [place] [employer] guidelines. BI-RADS Category 2 - Benign Findings Breast Density - Category B - There are scattered areas of fibroglandular density. Breast density Category C or D implies that the patient has dense breast tissue. Dense breast tissue can make it harder to find cancer on a mammogram. Dense breast tissue is also associated with an increased risk of breast cancer. This information about the result of the mammogram report was provided to the patient to raise their awareness. Use this report when you speak with the patient about their risks for breast cancer, which includes their family history. At that time, you may recommend additional screening tests (Ultrasound or MRI) as these tests may add significant information. A negative radiographic report should not delay biopsy if a dominant or clinically suspicious mass is present. Up to ten percent of cancers are not identified on mammography. A negative report may reinforce clinical impression. Adenosis and dense breasts may obscure an underlying neoplasm. False positive reports average 6 to 10%. Patient will receive a letter notifying them of these results.
== END 2024-11-10 02:15 ==
PROVIDERS: PCP Nurse Practitioner Family; Visit Provider Nurse Practitioner Family
DX: Z12.31 Encounter for screening mammogram for malignant neoplasm of breast (principal); R92.323 Mammographic fibroglandular density, bilateral breasts
CPT/HCPCS: 77063; 77067

== ENCOUNTER 2025-05-17 10:47 | Outpatient (CLI) | payer OTHER, SELFPAY ==
[2025-05-17 10:41] LABS: Abs Immature Grans 0.04 10^3/uL (0.0-0.06); HCT 36.8 % (36.0-46.0); HGB 12.6 g/dL (11.2-15.7); Immature Grans % 0.6 %; MCH 31.7 pg (27.0-33.0); MCHC 34.2 % (32.0-36.0); MCV 93 fL (80-95); MPV 9.5 fL (8.0-11.0); Platelet Count 169 10^3/uL (130-400); RBC 3.97 10^6/uL (3.93-5.22); RDW 12.9 % (11.7-14.6); RDW-SD 43.8 fL; WBC 6.27 10^3/uL (4.4-10.8)
[2025-05-17 11:02] LABS: Microalb ug/mg Crea 3.9 ug/mg Cr
[2025-05-17 11:06] LABS: ALT 34 U/L (10-49); AST 26 U/L (<34); Albumin 4.1 g/dL (3.2-5.0); Alkaline Phosphatase 54 U/L (46-116); Anion Gap 9.7 mmol/L (3-11); BUN 13 mg/dL (9-23); Bilirubin, Total 0.7 mg/dL (0.2-1.2); CO2 30.3 mmol/L (20.0-31.0); Calcium 9.7 mg/dL (8.3-10.6); Chloride 103 mmol/L (98-107); Cholesterol 132 mg/dL (<200); Glucose 205 mg/dL (74-106); HDL Cholesterol 46 mg/dL (>or=50); Potassium 3.7 mmol/L (3.5-5.1); Sodium 143 mmol/L (136-145); Total Protein 6.8 g/dL (5.7-8.2)
== END 2025-05-17 10:48 | disposition home or self-care (01) ==
LOC: LBO 10:50
PROVIDERS: PCP Nurse Practitioner Family; Visit Provider Nurse Practitioner Family
DX: E11.319 Type 2 diabetes mellitus with unspecified diabetic retinopathy without macular edema (principal)
CPT/HCPCS: 36415; 80053; 80061; 82043; 82570; 85025